=== PATIENT | male | born 1955 | race Two or more races ===

== ENCOUNTER → 2022-12-28 | Outpatient (CLI) | payer OTHER ==
[~2022-12-28] MED LIST: HYDR-4902 PO; IBUP800T26 PO; LACT10SO3 PO; TAM04C PO
[2022-12-28 11:21] LABS: Urine WBC None Seen /hpf (0 - 3)
[2022-12-28 11:27] LABS: Basophils # (auto) 0 10 ^3/uL (0-0.2); Basophils % (auto) 0.6 % (0.0-2.0); Eosinophils # (auto) 0.2 10 ^3/uL (0-0.8); Eosinophils % (auto) 2.9 % (0.0-7.0); Hematocrit 43.3 % (41.0-53.0); Lymphocytes # (auto) 2.4 10 ^3/uL (0.4-5.4); Lymphocytes % (auto) 32.3 % (10.0-50.0); Mean Corpuscular Hemoglobin 31.4 pg (28.0-32.0); Mean Corpuscular Hgb Conc. 34.6 g/dL (32.0-36.0); Mean Corpuscular Volume 90.7 fL (80.0-100.0); Monocytes # (auto) 0.8 10 ^3/uL (0-1.3); Monocytes % (auto) 11.1 % (0.0-12.0); Neutrophils # (auto) 3.9 10 ^3/uL (1.6-8.6); Neutrophils % (auto) 53.1 % (37.0-80.0); Nucleated Red Blood Cells % 0.1 %; Red Blood Cells 4.78 10^6/uL (4.5-5.90); Red Cell Distribution Width 13.2 % (11.8-14.3); White Blood Cell 7.3 10^3/uL (4.4-10.8)
[2022-12-28 11:51] LABS: Urine Bacteria NONE SEEN /hpf (None Seen); Urine Blood Negative /uL (Negative)
[2022-12-28 11:58] LABS: Calcium 9.1 mg/dL (8.5-10.1); Magnesium 2.4 mg/dL (1.6-2.6); Uric Acid 4.7 mg/dL (3.5-7.2)
[2022-12-28 12:04] LABS: BUN/Creatinine Ratio 13.4 (10.0-20.0); Bilirubin, Total 0.8 mg/dL (0.2-1.0); Total Protein 7.1 g/dL (6.4-8.2)
[2022-12-28 12:34] LABS: Potassium 4.4 mmol/L (3.5-5.1)
== END | disposition home or self-care (01) ==
LOC: LAB 11:11
PROVIDERS: ATTEND Internal Medicine
DX: R73.09 Other abnormal glucose (principal); E78.41 Elevated Lipoprotein(a); R68.89 Other general symptoms and signs; E61.2 Magnesium deficiency; R94.6 Abnormal results of thyroid function studies; R82.991 Hypocitraturia; E55.9 Vitamin D deficiency, unspecified; R82.90 Unspecified abnormal findings in urine; D51.9 Vitamin B12 deficiency anemia, unspecified; E79.0 Hyperuricemia without signs of inflammatory arthritis and tophaceous disease
CPT/HCPCS: 36415; 80053; 80061; 81001; 82306; 82607; 83036; 83735; 84443; 84550; 85025; 87086; 87088; 87186

== ENCOUNTER 2023-01-05 15:05 | Emergency (ER) | payer OTHER, MEDICAID ==
[~2023-01-05] VITALS: Ht 170.2 cm; Wt 79.5 kg
[2023-01-05 15:56] LABS: Urine Bacteria NONE SEEN /hpf (None Seen); Urine Blood Negative /uL (Negative); Urine Specific Gravity 1.011 (1.001-1.035); Urine WBC <1 /hpf (0 - 3)
[2023-01-05 16:35] LABS: Albumin 3.9 g/dL (3.4-5.0); Calcium 8.5 mg/dL (8.5-10.1); Potassium 3.9 mmol/L (3.5-5.1)
[2023-01-05 16:39] LABS: BUN/Creatinine Ratio 13.3 (10.0-20.0); Bilirubin, Total 0.7 mg/dL (0.2-1.0); Total Protein 7.2 g/dL (6.4-8.2)
[2023-01-05 16:43] LABS: Basophils # (auto) 0.1 10 ^3/uL (0-0.2); Basophils % (auto) 1.2 % (0.0-2.0); Eosinophils # (auto) 0.3 10 ^3/uL (0-0.8); Hematocrit 42.8 % (41.0-53.0); Hemoglobin 14.8 g/dL (13.5-17.5); Lymphocytes % (auto) 32.3 % (10.0-50.0); Mean Corpuscular Hemoglobin 31.6 pg (28.0-32.0); Mean Corpuscular Hgb Conc. 34.7 g/dL (32.0-36.0); Mean Corpuscular Volume 91.3 fL (80.0-100.0); Monocytes # (auto) 0.9 10 ^3/uL (0-1.3); Monocytes % (auto) 9.4 % (0.0-12.0); Neutrophils % (auto) 54.1 % (37.0-80.0); Nucleated Red Blood Cells % 0.1 %; Red Blood Cells 4.69 10^6/uL (4.5-5.90); Red Cell Distribution Width 13.3 % (11.8-14.3); White Blood Cell 9.2 10^3/uL (4.4-10.8)
[2023-01-05] MEDS ORDERED: HYDROcodone-ACET 10/325MG TAB PO ONE (18:00)
[2023-01-05] MEDS ORDERED: KETOROLAC TROMETH 60MG/2ML VIAL IM ONE (18:00)
[2023-01-05] MEDS ORDERED: IBUP800T26 PO (20:02)
[2023-01-05] MEDS ORDERED: LACT10SO3 PO (20:02)
[2023-01-05] MEDS ORDERED: TAM04C PO (20:02)
[2023-01-05] MEDS ORDERED: HYDR-4902 PO (20:02)
[2023-01-05 20:27] VITALS: BP 143/64
== END 2023-01-05 20:30 | disposition home or self-care (01) ==
LOC: ER 15:05
DX: G89.29 Other chronic pain (principal); M54.9 Dorsalgia, unspecified; K59.00 Constipation, unspecified; R33.9 Retention of urine, unspecified
CPT/HCPCS: 36415; 72070; 72100; 80053; 81001; 85025; 93005; 96372; 99285; J1885

== ENCOUNTER → 2023-04-28 | Outpatient (CLI) | payer OTHER, MEDICAID ==
[~2023-04-28] MED LIST changes: +IBUP-1455 PO; -IBUP800T26 PO; -TAM04C PO; +TAMS-35 PO
[2023-04-28 07:23] LABS: Basophils # (auto) 0.1 10 ^3/uL (0-0.2); Basophils % (auto) 1.3 % (0.0-2.0); Eosinophils # (auto) 0.3 10 ^3/uL (0-0.8); Eosinophils % (auto) 3.6 % (0.0-7.0); Hemoglobin 14.7 g/dL (13.5-17.5); Lymphocytes # (auto) 3.2 10 ^3/uL (0.4-5.4); Lymphocytes % (auto) 37.4 % (10.0-50.0); Mean Corpuscular Hemoglobin 30.9 pg (28.0-32.0); Mean Corpuscular Hgb Conc. 34.9 g/dL (32.0-36.0); Mean Corpuscular Volume 88.6 fL (80.0-100.0); Monocytes % (auto) 12.3 % (0.0-12.0); Neutrophils # (auto) 3.9 10 ^3/uL (1.6-8.6); Neutrophils % (auto) 45.4 % (37.0-80.0); Nucleated Red Blood Cells % 0.2 %; Red Blood Cells 4.75 10^6/uL (4.5-5.90); Red Cell Distribution Width 13.1 % (11.8-14.3); White Blood Cell 8.5 10^3/uL (4.4-10.8)
[2023-04-28 08:21] LABS: Urine Bacteria NONE SEEN /hpf (None Seen); Urine Blood Negative /uL (Negative); Urine Clarity Clear (Clear); Urine Protein, UAD Negative (Negative); Urine Specific Gravity 1.018 (1.001-1.035); Urine Urobilinogen Normal (Negative); Urine WBC <1 /hpf (0 - 3)
[2023-04-28 08:23] LABS: Urine Color Straw (Yellow)
[2023-04-28 08:44] LABS: Alanine Aminotransferase 13 U/L (7-40); Albumin 4.4 g/dL (3.2-4.8); Alkaline Phosphatase 48 U/L (46-116); Anion Gap 5.8 (5-15); Aspartate Aminotransferase < 8 U/L (13-40); BUN/Creatinine Ratio 16.5 (10.0-20.0); Blood Urea Nitrogen 15 mg/dL (9-23); Calcium 9.3 mg/dL (8.5-10.1); Carbon Dioxide 27.2 mmol/L (20-30); Chloride 104 mmol/L (98-107); Glucose 79 mg/dL (74-106); LDL Cholesterol 116 mg/dL (< 100); Magnesium 2.2 mg/dL (1.6-2.6); Sodium 137 mmol/L (136-145); Total Protein 6.8 g/dL (5.7-8.2); Triglycerides 237 mg/dL (< 150)
[2023-04-28 08:45] LABS: Bilirubin, Direct 0.2 mg/dL (<0.3); Bilirubin, Total 0.8 mg/dL (0.2-1.0); Cholesterol 194 mg/dL (< 200); HDL Cholesterol 36 mg/dL (40-59)
[2023-04-28 09:36] LABS: Folate (Folic Acid) 12.47 ng/mL (>5.38)
== END | disposition home or self-care (01) ==
LOC: LAB 06:57
PROVIDERS: ATTEND Internal Medicine
DX: E11.8 Type 2 diabetes mellitus with unspecified complications (principal); I10 Essential (primary) hypertension; R94.5 Abnormal results of liver function studies; D64.9 Anemia, unspecified; E03.9 Hypothyroidism, unspecified; E78.5 Hyperlipidemia, unspecified; E61.2 Magnesium deficiency; R94.6 Abnormal results of thyroid function studies; E79.0 Hyperuricemia without signs of inflammatory arthritis and tophaceous disease; R82.998 Other abnormal findings in urine; E55.9 Vitamin D deficiency, unspecified; R82.90 Unspecified abnormal findings in urine; R82.79 Other abnormal findings on microbiological examination of urine; D51.9 Vitamin B12 deficiency anemia, unspecified; E78.49 Other hyperlipidemia; R68.89 Other general symptoms and signs
CPT/HCPCS: 36415; 80053; 80061; 80076; 81001; 82306; 82607; 82746; 83036; 83735; 84443; 84550; 85025; 87086

== ENCOUNTER → 2023-06-15 | Outpatient (CLI) | payer OTHER ==
[2023-06-15 12:10] LABS: Basophils # (auto) 0.1 10 ^3/uL (0-0.2); Basophils % (auto) 0.8 % (0.0-2.0); Eosinophils # (auto) 0.1 10 ^3/uL (0-0.8); Eosinophils % (auto) 0.6 % (0.0-7.0); Hematocrit 46.3 % (41.0-53.0); Hemoglobin 15.6 g/dL (13.5-17.5); Lymphocytes # (auto) 2.4 10 ^3/uL (0.4-5.4); Lymphocytes % (auto) 22.5 % (10.0-50.0); Mean Corpuscular Hemoglobin 30.6 pg (28.0-32.0); Mean Corpuscular Hgb Conc. 33.6 g/dL (32.0-36.0); Monocytes # (auto) 1.1 10 ^3/uL (0-1.3); Neutrophils % (auto) 66.1 % (37.0-80.0); Red Blood Cells 5.09 10^6/uL (4.5-5.90); Red Cell Distribution Width 12.7 % (11.8-14.3); White Blood Cell 10.6 10^3/uL (4.4-10.8)
[2023-06-15 13:06] LABS: Alanine Aminotransferase 11 U/L (7-40); Albumin 5.1 g/dL (3.2-4.8); Alkaline Phosphatase 60 U/L (46-116); Anion Gap 8 (5-15); Aspartate Aminotransferase < 8 U/L (13-40); BUN/Creatinine Ratio 14.3 (10.0-20.0); Blood Urea Nitrogen 14 mg/dL (9-23); Calcium 9.8 mg/dL (8.7-10.4); Carbon Dioxide 27 mmol/L (20-30); Chloride 101 mmol/L (98-107); Glucose 118 mg/dL (74-106); Potassium 3.8 mmol/L (3.5-5.1); Sodium 136 mmol/L (136-145); Uric Acid 3.8 mg/dL (3.7-9.2)
[2023-06-15 13:07] LABS: Bilirubin, Total 1.1 mg/dL (0.2-1.0); Total Protein 7.8 g/dL (5.7-8.2)
[2023-06-15 13:21] LABS: Erythrocyte Sedimentation Rate 11 mm/hr (0-20)
[2023-06-15 13:33] LABS: CRP High Sensitivity 0.04 mg/dL (<1.0)
[2023-06-16 08:06] LABS: Rheumatoid Arthritis Factor <10.0 IU/mL (<14.0)
[2023-06-16 21:06] LABS: CCP IgG/IgA Antibody 2 units (0-19)
== END | disposition home or self-care (01) ==
LOC: LAB 11:50
PROVIDERS: ATTEND Internal Medicine Rheumatology
DX: M06.4 Inflammatory polyarthropathy (principal)
CPT/HCPCS: 36415; 80053; 84550; 85025; 85652; 86141; 86200; 86431

== ENCOUNTER 2023-07-13 14:44 | Emergency (ER) | payer OTHER, MEDICAID ==
[~2023-07-13] VITALS: Ht 170.2 cm; Wt 79.2 kg
[2023-07-13 15:44] LABS: Urine WBC None Seen /hpf (0 - 3)
[2023-07-13 15:49] LABS: Alanine Aminotransferase 15 U/L (7-40); Albumin 4.3 g/dL (3.2-4.8); Alkaline Phosphatase 50 U/L (46-116); Amylase 68 U/L (30-118); Anion Gap 3 (5-15); Aspartate Aminotransferase 11 U/L (13-40); BUN/Creatinine Ratio 11.8 (10.0-20.0); Blood Urea Nitrogen 11 mg/dL (9-23); Calcium 9.1 mg/dL (8.5-10.1); Carbon Dioxide 29 mmol/L (20-30); Chloride 105 mmol/L (98-107); Glucose 162 mg/dL (74-106); Potassium 4.1 mmol/L (3.5-5.1); Sodium 137 mmol/L (136-145)
[2023-07-13 15:50] LABS: Bilirubin, Total 0.7 mg/dL (0.2-1.0); Total Protein 6.4 g/dL (5.7-8.2)
[2023-07-13 15:55] LABS: Urine Bacteria NONE SEEN /hpf (None Seen); Urine Blood Negative /uL (Negative); Urine Clarity Clear (Clear); Urine Protein, UAD Negative (Negative); Urine Specific Gravity 1.014 (1.001-1.035); Urine Urobilinogen Normal (Negative); Urine pH 6.5 (5.0-8.0)
[2023-07-13 15:59] LABS: Basophils # (auto) 0.1 10 ^3/uL (0-0.2); Eosinophils # (auto) 0.1 10 ^3/uL (0-0.8); Eosinophils % (auto) 1.3 % (0.0-7.0); Hematocrit 41.1 % (41.0-53.0); Hemoglobin 13.9 g/dL (13.5-17.5); Lymphocytes # (auto) 2.3 10 ^3/uL (0.4-5.4); Lymphocytes % (auto) 29.4 % (10.0-50.0); Mean Corpuscular Hemoglobin 30.8 pg (28.0-32.0); Mean Corpuscular Hgb Conc. 33.9 g/dL (32.0-36.0); Mean Corpuscular Volume 90.9 fL (80.0-100.0); Monocytes # (auto) 0.7 10 ^3/uL (0-1.3); Monocytes % (auto) 8.4 % (0.0-12.0); Neutrophils # (auto) 4.8 10 ^3/uL (1.6-8.6); Neutrophils % (auto) 59.9 % (37.0-80.0); Red Blood Cells 4.52 10^6/uL (4.5-5.90); Red Cell Distribution Width 12.8 % (11.8-14.3)
[2023-07-13 16:02] LABS: INR 1.02 (0.9-1.15); Partial Thromboplastin Time 28.5 SEC (24.5-34.5); Prothrombin Time 10.7 sec (9.3-11.8)
[2023-07-13 16:13] LABS: Urine Color STRAW (Yellow)
[2023-07-13 16:57] LABS: Lipase 31 U/L (12-53); Magnesium 2.1 mg/dL (1.6-2.6)
[2023-07-13] MEDS ORDERED: NITR-87 PO (20:04)
[2023-07-13 20:25] VITALS: BP 135/62; PULSE 63; RESP 18; TEMP 97.5; O2SAT 100
== END 2023-07-13 20:27 | disposition home or self-care (01) ==
LOC: ER 14:44
DX: K29.00 Acute gastritis without bleeding (principal); N39.0 Urinary tract infection, site not specified; Z79.899 Other long term (current) drug therapy
CPT/HCPCS: 36415; 74176; 80053; 81001; 82150; 83690; 83735; 84484; 85025; 85610; 85730; 93005

== ENCOUNTER → 2023-07-22 | Outpatient (CLI) | payer OTHER ==
[~2023-07-22] MED LIST changes: +NITR-87 PO
[2023-07-22 12:48] LABS: Basophils # (auto) 0 10 ^3/uL (0-0.2); Basophils % (auto) 0.3 % (0.0-2.0); Eosinophils # (auto) 0.4 10 ^3/uL (0-0.8); Eosinophils % (auto) 3.8 % (0.0-7.0); Hematocrit 42.4 % (41.0-53.0); Hemoglobin 14.6 g/dL (13.5-17.5); Lymphocytes # (auto) 0.8 10 ^3/uL (0.4-5.4); Lymphocytes % (auto) 8.4 % (10.0-50.0); Mean Corpuscular Hgb Conc. 34.4 g/dL (32.0-36.0); Mean Corpuscular Volume 90.2 fL (80.0-100.0); Monocytes # (auto) 1.2 10 ^3/uL (0-1.3); Monocytes % (auto) 12.3 % (0.0-12.0); Neutrophils # (auto) 7.5 10 ^3/uL (1.6-8.6); Neutrophils % (auto) 75.2 % (37.0-80.0); Red Cell Distribution Width 13.2 % (11.8-14.3)
[2023-07-22 13:09] LABS: Alanine Aminotransferase 14 U/L (7-40); Albumin 4.5 g/dL (3.2-4.8); Alkaline Phosphatase 58 U/L (46-116); Anion Gap 5 (5-15); Aspartate Aminotransferase 9 U/L (13-40); BUN/Creatinine Ratio 8.9 (10.0-20.0); Bilirubin, Direct 0.4 mg/dL (<0.3); Bilirubin, Total 1.2 mg/dL (0.2-1.0); Blood Urea Nitrogen 8 mg/dL (9-23); Calcium 9.3 mg/dL (8.5-10.1); Carbon Dioxide 28 mmol/L (20-30); Chloride 102 mmol/L (98-107); Cholesterol 137 mg/dL (< 200); Glucose 147 mg/dL (74-106); HDL Cholesterol 49 mg/dL (40-59); LDL Cholesterol 73 mg/dL (< 100); Potassium 4.2 mmol/L (3.5-5.1); Sodium 135 mmol/L (136-145)
[2023-07-22 13:15] LABS: Triglycerides 71 mg/dL (< 150)
== END | disposition home or self-care (01) ==
LOC: LAB 12:26
PROVIDERS: ATTEND Specialist
DX: I10 Essential (primary) hypertension (principal); R94.5 Abnormal results of liver function studies; D64.9 Anemia, unspecified; E78.5 Hyperlipidemia, unspecified; E11.8 Type 2 diabetes mellitus with unspecified complications; E03.9 Hypothyroidism, unspecified
CPT/HCPCS: 36415; 80053; 80061; 80076; 83036; 84443; 85025

== ENCOUNTER → 2023-08-17 | Outpatient (CLI) | payer OTHER ==
[2023-08-17 09:25] LABS: Basophils # (auto) 0.1 10 ^3/uL (0-0.2); Basophils % (auto) 1.2 % (0.0-2.0); Eosinophils # (auto) 0.7 10 ^3/uL (0-0.8); Eosinophils % (auto) 9.2 % (0.0-7.0); Hematocrit 44.4 % (41.0-53.0); Lymphocytes # (auto) 2.8 10 ^3/uL (0.4-5.4); Lymphocytes % (auto) 38.4 % (10.0-50.0); Mean Corpuscular Hemoglobin 30.5 pg (28.0-32.0); Mean Corpuscular Hgb Conc. 33.7 g/dL (32.0-36.0); Mean Corpuscular Volume 90.6 fL (80.0-100.0); Monocytes # (auto) 0.9 10 ^3/uL (0-1.3); Monocytes % (auto) 11.7 % (0.0-12.0); Neutrophils # (auto) 2.9 10 ^3/uL (1.6-8.6); Neutrophils % (auto) 39.5 % (37.0-80.0); Nucleated Red Blood Cells % 0.1 %; Red Cell Distribution Width 13.4 % (11.8-14.3); White Blood Cell 7.4 10^3/uL (4.4-10.8)
[2023-08-17 09:53] LABS: Alanine Aminotransferase 15 U/L (7-40); Albumin 4.6 g/dL (3.2-4.8); Alkaline Phosphatase 55 U/L (46-116); Anion Gap 8 (5-15); Aspartate Aminotransferase 11 U/L (13-40); BUN/Creatinine Ratio 11.4 (10.0-20.0); Blood Urea Nitrogen 10 mg/dL (9-23); Calcium 9.6 mg/dL (8.5-10.1); Carbon Dioxide 26 mmol/L (20-30); Chloride 103 mmol/L (98-107); Glucose 107 mg/dL (74-106); LDL Cholesterol 80 mg/dL (< 100); Potassium 4.1 mmol/L (3.5-5.1); Sodium 137 mmol/L (136-145); Triglycerides 177 mg/dL (< 150)
[2023-08-17 09:54] LABS: Bilirubin, Direct 0.2 mg/dL (<0.3); Bilirubin, Total 0.8 mg/dL (0.2-1.0); Cholesterol 141 mg/dL (< 200); HDL Cholesterol 41 mg/dL (40-59); Total Protein 6.9 g/dL (5.7-8.2)
== END | disposition home or self-care (01) ==
LOC: LAB 08:58
PROVIDERS: ATTEND Specialist
DX: I10 Essential (primary) hypertension (principal); R94.5 Abnormal results of liver function studies; D64.9 Anemia, unspecified; E03.9 Hypothyroidism, unspecified; E78.5 Hyperlipidemia, unspecified; E11.8 Type 2 diabetes mellitus with unspecified complications
CPT/HCPCS: 36415; 80048; 80061; 80076; 83036; 84443; 85025

== ENCOUNTER → 2023-10-12 | Outpatient (CLI) | payer OTHER ==
[2023-10-12 13:00] LABS: Basophils # (auto) 0.1 10 ^3/uL (0-0.2); Basophils % (auto) 1.1 % (0.0-2.0); Eosinophils # (auto) 0.2 10 ^3/uL (0-0.8); Eosinophils % (auto) 2.7 % (0.0-7.0); Hematocrit 43.8 % (41.0-53.0); Lymphocytes # (auto) 2.3 10 ^3/uL (0.4-5.4); Lymphocytes % (auto) 30.3 % (10.0-50.0); Mean Corpuscular Hemoglobin 31.1 pg (28.0-32.0); Mean Corpuscular Hgb Conc. 34.2 g/dL (32.0-36.0); Mean Corpuscular Volume 91.2 fL (80.0-100.0); Monocytes # (auto) 0.7 10 ^3/uL (0-1.3); Monocytes % (auto) 9.7 % (0.0-12.0); Neutrophils # (auto) 4.3 10 ^3/uL (1.6-8.6); Neutrophils % (auto) 56.2 % (37.0-80.0); Nucleated Red Blood Cells % 0.1 %; Red Blood Cells 4.81 10^6/uL (4.5-5.90); Red Cell Distribution Width 13.3 % (11.8-14.3); White Blood Cell 7.7 10^3/uL (4.4-10.8)
[2023-10-12 13:09] LABS: Alanine Aminotransferase 11 U/L (7-40); Albumin 4.5 g/dL (3.2-4.8); Alkaline Phosphatase 50 U/L (46-116); Anion Gap 4 (5-15); Aspartate Aminotransferase 13 U/L (13-40); BUN/Creatinine Ratio 9.4 (10.0-20.0); Blood Urea Nitrogen 8 mg/dL (9-23); Calcium 9.6 mg/dL (8.5-10.1); Carbon Dioxide 30 mmol/L (20-30); Chloride 104 mmol/L (98-107); Cholesterol 150 mg/dL (< 200); Glucose 129 mg/dL (74-106); LDL Cholesterol 88 mg/dL (< 100); Potassium 4.1 mmol/L (3.5-5.1); Sodium 138 mmol/L (136-145); Triglycerides 139 mg/dL (< 150)
[2023-10-12 13:10] LABS: Bilirubin, Direct 0.3 mg/dL (<0.3); Bilirubin, Total 1.1 mg/dL (0.2-1.0); HDL Cholesterol 43 mg/dL (40-59)
[2023-10-12 13:11] LABS: Total Protein 6.7 g/dL (5.7-8.2)
== END | disposition home or self-care (01) ==
LOC: LAB 12:11
PROVIDERS: ATTEND Specialist
DX: I10 Essential (primary) hypertension (principal); R94.5 Abnormal results of liver function studies; D64.9 Anemia, unspecified; E78.5 Hyperlipidemia, unspecified; E11.8 Type 2 diabetes mellitus with unspecified complications; E55.9 Vitamin D deficiency, unspecified; E03.9 Hypothyroidism, unspecified
CPT/HCPCS: 36415; 80048; 80061; 80076; 82306; 83036; 84443; 85025

== ENCOUNTER → 2024-01-12 | Outpatient (CLI) | payer OTHER ==
[2024-01-12 09:27] LABS: Basophils # (auto) 0.1 10 ^3/uL (0-0.2); Basophils % (auto) 0.7 % (0.0-2.0); Eosinophils # (auto) 0.2 10 ^3/uL (0-0.8); Eosinophils % (auto) 1.9 % (0.0-7.0); Hematocrit 43.1 % (41.0-53.0); Hemoglobin 14.6 g/dL (13.5-17.5); Lymphocytes # (auto) 2.8 10 ^3/uL (0.4-5.4); Lymphocytes % (auto) 26.4 % (10.0-50.0); Mean Corpuscular Hemoglobin 30.5 pg (28.0-32.0); Mean Corpuscular Volume 89.8 fL (80.0-100.0); Monocytes # (auto) 1.2 10 ^3/uL (0-1.3); Monocytes % (auto) 10.9 % (0.0-12.0); Neutrophils # (auto) 6.4 10 ^3/uL (1.6-8.6); Neutrophils % (auto) 60.1 % (37.0-80.0); Red Blood Cells 4.79 10^6/uL (4.5-5.90); Red Cell Distribution Width 12.8 % (11.8-14.3); White Blood Cell 10.6 10^3/uL (4.4-10.8)
[2024-01-12 09:58] LABS: Alanine Aminotransferase 10 U/L (7-40); Albumin 4.7 g/dL (3.2-4.8); Alkaline Phosphatase 83 U/L (46-116); Anion Gap 6 (5-15); Aspartate Aminotransferase < 8 U/L (13-40); BUN/Creatinine Ratio 18.8 (10.0-20.0); Bilirubin, Direct 0.3 mg/dL (<0.3); Blood Urea Nitrogen 15 mg/dL (9-23); Calcium 9.7 mg/dL (8.5-10.1); Carbon Dioxide 27 mmol/L (20-30); Chloride 104 mmol/L (98-107); Cholesterol 183 mg/dL (< 200); Glucose 104 mg/dL (74-106); HDL Cholesterol 45 mg/dL (40-59); LDL Cholesterol 126 mg/dL (< 100); Potassium 3.8 mmol/L (3.5-5.1); Sodium 137 mmol/L (136-145); Triglycerides 92 mg/dL (< 150)
[2024-01-12 09:59] LABS: Bilirubin, Total 0.9 mg/dL (0.2-1.0); Total Protein 7.3 g/dL (5.7-8.2)
== END | disposition home or self-care (01) ==
LOC: LAB 08:40
PROVIDERS: ATTEND Specialist
DX: E11.9 Type 2 diabetes mellitus without complications (principal); E03.9 Hypothyroidism, unspecified; E78.5 Hyperlipidemia, unspecified; I10 Essential (primary) hypertension; D64.9 Anemia, unspecified; R68.89 Other general symptoms and signs
CPT/HCPCS: 36415; 80053; 80061; 82043; 82248; 83036; 84443; 85025

== ENCOUNTER → 2024-03-16 | Outpatient (CLI) | payer OTHER ==
[2024-03-16 11:18] LABS: Urine Bacteria None Seen /hpf (None Seen)
[2024-03-16 11:27] LABS: Basophils # (auto) 0.2 10 ^3/uL (0-0.2); Basophils % (auto) 2.2 % (0.0-2.0); Eosinophils # (auto) 0.4 10 ^3/uL (0-0.8); Eosinophils % (auto) 4.2 % (0.0-7.0); Hematocrit 42.7 % (41.0-53.0); Hemoglobin 14.8 g/dL (13.5-17.5); Lymphocytes # (auto) 2.4 10 ^3/uL (0.4-5.4); Lymphocytes % (auto) 28.9 % (10.0-50.0); Mean Corpuscular Hemoglobin 30.7 pg (28.0-32.0); Mean Corpuscular Hgb Conc. 34.6 g/dL (32.0-36.0); Mean Corpuscular Volume 88.7 fL (80.0-100.0); Monocytes % (auto) 11.9 % (0.0-12.0); Neutrophils # (auto) 4.4 10 ^3/uL (1.6-8.6); Neutrophils % (auto) 52.8 % (37.0-80.0); Nucleated Red Blood Cells % 0.1 %; Red Blood Cells 4.81 10^6/uL (4.5-5.90); Red Cell Distribution Width 13.5 % (11.8-14.3); White Blood Cell 8.3 10^3/uL (4.4-10.8)
[2024-03-16 11:56] LABS: Alanine Aminotransferase 12 U/L (7-40); Alkaline Phosphatase 62 U/L (46-116); Anion Gap 5 (5-15); BUN/Creatinine Ratio 7.2 (10.0-20.0); Blood Urea Nitrogen 6 mg/dL (9-23); Calcium 9.5 mg/dL (8.7-10.4); Carbon Dioxide 29 mmol/L (20-30); Chloride 106 mmol/L (98-107); Glucose 88 mg/dL (74-106); LDL Cholesterol 53 mg/dL (< 100); Potassium 4.2 mmol/L (3.5-5.1); Sodium 140 mmol/L (136-145); Triglycerides 115 mg/dL (< 150)
[2024-03-16 11:57] LABS: Albumin 4.4 g/dL (3.2-4.8); Aspartate Aminotransferase 9 U/L (13-40); Cholesterol 108 mg/dL (< 200); HDL Cholesterol 39 mg/dL (40-59); Total Protein 6.8 g/dL (5.7-8.2)
[2024-03-16 11:58] LABS: Urine Blood TRACE /uL (Negative); Urine Clarity Clear (Clear); Urine Color Light-Yellow (Yellow); Urine Protein, UAD Negative (Negative); Urine Specific Gravity 1.023 (1.001-1.035); Urine Urobilinogen Normal (Negative); Urine WBC <1 /hpf (0 - 3); Urine pH 6.5 (5.0-9.0)
[2024-03-16 12:10] LABS: Folate (Folic Acid) 15.18 ng/mL (>5.38)
[2024-03-16 12:16] LABS: Uric Acid 3.6 mg/dL (3.7-9.2)
== END | disposition home or self-care (01) ==
LOC: LAB 11:05
PROVIDERS: ATTEND Internal Medicine
DX: I10 Essential (primary) hypertension (principal); D51.9 Vitamin B12 deficiency anemia, unspecified; R78.89 Finding of other specified substances, not normally found in blood; R68.89 Other general symptoms and signs; E03.9 Hypothyroidism, unspecified; D64.9 Anemia, unspecified; E78.5 Hyperlipidemia, unspecified; E11.9 Type 2 diabetes mellitus without complications; E61.2 Magnesium deficiency; E79.0 Hyperuricemia without signs of inflammatory arthritis and tophaceous disease; E85.9 Amyloidosis, unspecified; R82.90 Unspecified abnormal findings in urine
CPT/HCPCS: 36415; 80053; 80061; 81001; 82306; 82607; 82746; 83036; 84443; 84550; 85025; 87086

== ENCOUNTER 2024-06-06 14:48 | Emergency (ER) | payer OTHER ==
[~2024-06-06] VITALS: Ht 170.2 cm; Wt 76.7 kg
[2024-06-06 20:00] VITALS: BP 146/61; PULSE 75; RESP 16; TEMP 97.6; O2SAT 100
[2024-06-06] MEDS: KETOROLAC TROMETH 30 MG/ML 1ML VIAL IM ONE (20:03)
== END 2024-06-06 20:14 | disposition home or self-care (01) ==
LOC: ER 14:48
DX: S09.90XA Unspecified injury of head, initial encounter (principal); I10 Essential (primary) hypertension; Z79.899 Other long term (current) drug therapy; W19.XXXA Unspecified fall, initial encounter; Y93.89 Activity, other specified; Y92.89 Other specified places as the place of occurrence of the external cause; Y99.8 Other external cause status
CPT/HCPCS: 70450; 96372; 99285; J1885

== ENCOUNTER → 2024-09-04 | Outpatient (CLI) | payer MEDICAID ==
[~2024-09-04] MED LIST changes: +ALBU108A5; +ATOR20TA50 PO; +CETI-120 PO; +EMPA1TAB3; +FAMO40TA7; +FOLI-119 PO; +GAB100C PO; +GLUC-105; +INSU1INJ4; +PANT40T PO; +PREG75CA90; +SEMA2INJ3 SC
[2024-09-04 10:32] LABS: Basophils # (auto) 0.1 10 ^3/uL (0-0.2); Basophils % (auto) 0.6 % (0.0-2.0); Eosinophils # (auto) 0.1 10 ^3/uL (0-0.8); Eosinophils % (auto) 0.8 % (0.0-7.0); Hematocrit 44.6 % (41.0-53.0); Hemoglobin 15.5 g/dL (13.5-17.5); Lymphocytes # (auto) 3.2 10 ^3/uL (0.4-5.4); Lymphocytes % (auto) 30.7 % (10.0-50.0); Mean Corpuscular Hemoglobin 31.4 pg (28.0-32.0); Mean Corpuscular Hgb Conc. 34.8 g/dL (32.0-36.0); Mean Corpuscular Volume 90.2 fL (80.0-100.0); Monocytes # (auto) 1.1 10 ^3/uL (0-1.3); Monocytes % (auto) 10.2 % (0.0-12.0); Neutrophils % (auto) 57.7 % (37.0-80.0); Platelet Count (auto) 256 10^3/uL (140-450); Red Blood Cells 4.94 10^6/uL (4.5-5.90); White Blood Cell 10.4 10^3/uL (4.4-10.8)
[2024-09-04 10:59] LABS: Alanine Aminotransferase 14 U/L (7-40); Albumin 4.8 g/dL (3.2-4.8); Alkaline Phosphatase 57 U/L (46-116); Anion Gap 9 (5-15); BUN/Creatinine Ratio 19.8 (10.0-20.0); Blood Urea Nitrogen 18 mg/dL (9-23); Calcium 10.1 mg/dL (8.7-10.4); Carbon Dioxide 27 mmol/L (20-31); Chloride 103 mmol/L (98-107); Sodium 139 mmol/L (136-145)
[2024-09-04 11:00] LABS: Aspartate Aminotransferase 12 U/L (13-40); Bilirubin, Direct 0.2 mg/dL (<0.3); Bilirubin, Total 0.9 mg/dL (0.2-1.0); Cholesterol 210 mg/dL (< 200); Glucose 113 mg/dL (74-106); HDL Cholesterol 45 mg/dL (40-59); LDL Cholesterol 140 mg/dL (< 100); Total Protein 7.4 g/dL (5.7-8.2); Triglycerides 206 mg/dL (< 150)
== END | disposition home or self-care (01) ==
LOC: LAB 10:07
PROVIDERS: ATTEND Specialist
DX: E11.9 Type 2 diabetes mellitus without complications (principal); I10 Essential (primary) hypertension; D64.9 Anemia, unspecified; E03.9 Hypothyroidism, unspecified; E78.5 Hyperlipidemia, unspecified; R68.89 Other general symptoms and signs
CPT/HCPCS: 36415; 80053; 80061; 82248; 83036; 84443; 85025

== ENCOUNTER 2024-09-06 15:17 | Inpatient (IN) | payer MEDICAID ==
[~2024-09-06] VITALS: Ht 170.2 cm; Wt 77.1 kg
[~2024-09-06 15:17] MED LIST changes: -ALBU108A5; -ATOR20TA50 PO; -CETI-120 PO; -EMPA1TAB3; -FAMO40TA7; -FOLI-119 PO; -GAB100C PO; -GLUC-105; -INSU1INJ4; -PANT40T PO; -PREG75CA90; -SEMA2INJ3 SC
--- NOTE | 2024-09-06 15:35 | ED.PDOC ---
History of Present Illness HPI Comments 69-year-old male with a past medical history of angioplasty in October of 2021 diabetes mellitus presents to the emergency department with 1-1/2 weeks of worsening chest pressure, lightheadedness, dizziness. Lightheadedness dizziness became worse this morning and coryza 830-9 a.m.. He states he feels like he is almost passed out several times however no full syncope. He has difficulty with walking, his balance is off. He was treated for upper respiratory infection 2 weeks ago with azithromycin. He has a mild cough since then. He reports shortness of breath, palpitations, nausea. No vomiting. Patient was taken off of clopidogrel approximately 3 months ago. He is still takes aspirin. Chief Complaint: Chest Pain Time Seen by MD: 15:19 Primary Care Provider: CM Allergies: Coded Allergies: NO KNOWN ALLERGIES (Unverified , 01/05/23) Home Meds Active Scripts Nitrofurantoin Monohydrate Mac (Macrobid) 100 Mg Cap, 100 MG PO BID for 7 Days, #14 CAP Prov:ABDIRASHID ZUÑIGA 07/13/23 Lactulose (Lactulose) 10 Gm/15 Ml Itzel, 10 GM PO BIDP PRN, #150 ML Prov:HAN SUMNER 01/05/23 Tamsulosin Hcl (Flomax) 0.4 Mg Cap, 1 CAP PO DAILY, #30 CAP 0 Refills Prov:HAN SUMNER 01/05/23 Hydrocodone-Acetaminophen (Hydrocodone Bitartrate/AC 5-325 mg) 1 Tab Tab, 1 TAB PO Q6HP PRN, #10 TAB Prov:HAN SUMNER 01/05/23 Ibuprofen Micronized (Ibuprofen) 800 Mg Tab, 800 MG PO Q8HP PRN, #20 TAB Prov:HAN SUMNER 01/05/23 Review of Systems: REVIEW OF SYSTEMS: No fever, no chills, or fatigue HEENT: No sore throat, no earache, no congestion, no neck pain. Positive blurred vision Cardiac: Positive chest pain. Positive palpitations. Lungs: Positive shortness of breath, positive cough. GI: Positive nausea, no vomiting, no diarrhea, no constipation, no abdominal pain : No dysuria, frequency, or urgency. No hematuria. Musculoskeletal: No joint pain , no joint swelling, no extremity edema. Skin: No rash, no itching. Neuro: Positive headache, positive dizziness, no weakness Vital Signs Vital Signs Date Time Temp Pulse Resp B/P (MAP) Pulse Ox O2 Delivery O2 Flow Rate FiO2 09/06/24 18:47 80 09/06/24 15:39 98.2 16 152/80 (104) 98 Physical Exam General: Awake, alert and oriented. No acute distress. Skin: Skin in warm, dry and intact without rashes or lesions. HEENT: The head is normocephalic and atraumatic. Conjunctivae are clear without exudates or hemorrhage. Sclera is non-icteric. Neck: Normal range of motion. No JVD. Cardiac: Regular rate Respiratory: No signs of respiratory distress. No Stridor. Extremities: Upper and lower extremities are atraumatic in appearance without tenderness or deformity. Neurological: The patient is awake, alert and oriented to person, place, and time with normal speech. Speech is clear. There is no facial asymmetry. Psychiatric: Appropriate mood and affect. Good judgement and insight. No visual or auditory hallucinations. No suicidal or homicidal ideation. Past Medical History PAST MEDICAL HISTORY: HTN Surgical History: Denies all surgeries Family History Family History: Reviewed,noncontributory to illness, No family hx of Cancer, No family hx of DM, No family hx of Heart mackenzie, No family hx of HTN, No family hx ofKidney mackenzie, No family hx of Liver mackenzie, No family hx of Lung mackenzie, No family hx of Stroke Social History Smoker: Non-Smoker Alcohol: Denies ETOH Use Drugs: Denies Drug Use Was a procedure done? Was a procedure done?: No EKG EKG : Comments EKG INDEPENDENT INTERPRETATION IN HIS TACHYCARDIA RATE OF 101, NO STEMI, QTC 432 Differential Dx Considerations may include: Differential diagnoses considered include acute ischemic coronary syndrome, aortic dissection, cardiac tamponade, mediastinitis, pulmonary embolus, pneumothorax, tension pneumothorax, esophageal rupture, coronary artery vasospasm, myocarditis, pericarditis, pneumonia, pulmonary edema, esophageal tear, pancreatitis, aortic stenosis, dilated cardiomyopathy, hypertrophic cardio myopathy, mitral valve prolapse, malignancy, pleuritis, pneumomediastinum, primary pulmonary hypertension, cholecystitis, esophageal spasm, esophagus, gastritis, GERD, peptic ulcer disease, costochondritis, fibromyalgia, rib fracture, herpes zoster, radicular syndromes, thoracic outlet syndrome, somatization, CVA, carotid artery stenosis, vertigo, Meniere's disease. X-Ray, Labs, Meds, VS Vital Signs Date Time Temp Pulse Resp B/P (MAP) Pulse Ox O2 Delivery O2 Flow Rate FiO2 09/06/24 18:47 80 09/06/24 16:33 99 09/06/24 15:39 98.2 103 16 152/80 (104) 98 09/06/24 15:22 101 Lab Test 09/06/24 18:37 09/06/24 16:35 09/06/24 15:29 09/06/24 15:26 Range/Units Troponin I High Sensitivity Pending 4 3 L </=54 ng/L White Blood Count 9.8 4.4-10.8 10^3/uL Red Blood Count 4.81 4.5-5.90 10^6/uL Hemoglobin 15.1 13.5-17.5 g/dL Hematocrit 43.0 41.0-53.0 % Mean Corpuscular Volume 89.5 80.0-100.0 fL Mean Corpuscular Hemoglobin 31.4 28.0-32.0 pg Mean Corpuscular Hemoglobin Concent 35.0 32.0-36.0 g/dL Red Cell Distribution Width 13.1 11.8-14.3 % Platelet Count 269 140-450 10^3/uL Mean Platelet Volume 7.0 6.9-10.8 fL Neutrophils (%) (Auto) 60.1 37.0-80.0 % Lymphocytes (%) (Auto) 28.3 10.0-50.0 % Monocytes (%) (Auto) 9.6 0.0-12.0 % Eosinophils (%) (Auto) 1.2 0.0-7.0 % Basophils (%) (Auto) 0.8 0.0-2.0 % Neutrophils # (Auto) 5.9 1.6-8.6 10 ^3/uL Lymphocytes # (Auto) 2.8 0.4-5.4 10 ^3/uL Monocytes # (Auto) 0.9 0-1.3 10 ^3/uL Eosinophils # (Auto) 0.1 0-0.8 10 ^3/uL Basophils # (Auto) 0.1 0-0.2 10 ^3/uL Nucleated Red Blood Cells 0.1 % D-Dimer, Quantitative 0.24 0.0-0.49 mg/L FEU Urine Color Light-yellow Yellow Urine Clarity Clear Clear Urine pH 5.5 5.0-9.0 Urine Specific [place] 1.039 H 1.001-1.035 Urine Protein Negative Negative Urine Ketones Negative Negative Urine Blood Negative Negative /uL Urine Nitrite Negative Negative Urine Bilirubin Negative Negative Urine Urobilinogen Normal Negative mg/dL Urine Leukocyte Esterase Negative Negative /uL Urine RBC None seen 0 - 3 /hpf Urine WBC <1 0 - 3 /hpf Urine Squamous Epithelial Cells None seen <5 /hpf Urine Bacteria None seen None Seen /hpf Urine Glucose 4+ H Normal mg/dL Sodium Level 139 136-145 mmol/L Potassium Level 3.7 3.5-5.1 mmol/L Chloride Level 106 98-107 mmol/L Carbon Dioxide Level 22 20-31 mmol/L Anion Gap 11 5-15 Blood Urea Nitrogen 16 9-23 mg/dL Creatinine 0.97 0.700-1.30 mg/dL Glomerular Filtration Rate Calc 83 >90 mL/min BUN/Creatinine Ratio 16.5 10.0-20.0 Serum Glucose 257 #H 74-106 mg/dL Calcium Level 9.9 8.7-10.4 mg/dL Total Bilirubin 0.7 0.2-1.0 mg/dL Aspartate Amino Transferase (AST) 11 L 13-40 U/L Alanine Aminotransferase (ALT) 14 7-40 U/L Alkaline Phosphatase 60 46-116 U/L B-Type Natriuretic Peptide 16.15 0-100 pg/mL Total Protein 6.8 5.7-8.2 g/dL Albumin 4.3 3.2-4.8 g/dL POC Glucose 245 H 70-106 mg/dl Time of 1ST Reevaluation: 15:54 Reevaluation 1ST: Unchanged Patient Education/Counseling: Treatment, Prognosis, Other (Need for admission) Family Education/Counseling: No Family Present Departure 1 Departure Time of Disposition: 19:20 Impression: Primary Impression: Chest pain Additional Impression: Pre-syncope Disposition: ADMITTED INPATIENT Condition: Stable Comments 69-year-old male with history of coronary artery disease, diabetes and presyncopal episodes. Patient admitted for further treatment, evaluation and monitoring. Extensive evaluation was performed in attempt to identify or rule out: (See differential diagnosis section) The following tests were ordered, and results were reviewed by me: (See diagnostic results section) The following test were independently interpreted by me: EKG, chest x-ray I reviewed the following notes from the pt's past medical encounters: Encounter 05/2024 for head injury Additional information was gathered from interviewing the following independent historians: N/A Discussion of management or test interpretation with external physician/other qualified health health care consultant: N/A Addressed an acute or chronic illness that poses a threat to life or bodily function: Presyncope, chest pain Decision regarding hospitalization or escalation of hospital level of care: Risk and benefits of admission for further treatment of patient's condition was considered. Due to patient's current clinical condition, high risk of decline and poor outcome if discharged and need for further inpatient management and monitoring, patient will be admitted to the hospital. Drug therapy requiring intensive monitoring for toxicity: N/A Parenteral controlled substances: N/A Decision regarding elective major surgery with identified patient or procedure risk factors: N/A Decision regarding emergency major surgery: N/A Decision not to resuscitate or to de-escalate care because of poor prognosis: N/A Diagnosis or treatment significantly limited by social determinants of health: N/A Critical Care Note Critical Care Time?: No Stability Stability form required: No Heart Score Heart Score: Heart Score Response (Comments) Value History Moderate Suspicious 1 EKG Normal 0 Age >65 2 Risk Factors >3 or Hx ASHD 2 Troponin Normal limit 0 Total 5 PARMJIT NARAYAN MD Sep 06, 2024 15:35
--- NOTE | 2024-09-06 15:42 | DVH ---
CHEST RADIOGRAPH Indication: CP Technique: Single frontal view of the chest was obtained COMPARISON: None FINDINGS: Lines and Tubes: None Lungs: Clear Pleura: No effusion. No pneumothorax. Cardiomediastinal contours: Unremarkable Bones: Unremarkable IMPRESSION: No acute disease.
[2024-09-06 15:52] LABS: Basophils # (auto) 0.1 10 ^3/uL (0-0.2); Basophils % (auto) 0.8 % (0.0-2.0); Eosinophils # (auto) 0.1 10 ^3/uL (0-0.8); Eosinophils % (auto) 1.2 % (0.0-7.0); Hemoglobin 15.1 g/dL (13.5-17.5); Lymphocytes # (auto) 2.8 10 ^3/uL (0.4-5.4); Lymphocytes % (auto) 28.3 % (10.0-50.0); Mean Corpuscular Hemoglobin 31.4 pg (28.0-32.0); Mean Corpuscular Volume 89.5 fL (80.0-100.0); Monocytes # (auto) 0.9 10 ^3/uL (0-1.3); Monocytes % (auto) 9.6 % (0.0-12.0); Neutrophils # (auto) 5.9 10 ^3/uL (1.6-8.6); Neutrophils % (auto) 60.1 % (37.0-80.0); Nucleated Red Blood Cells % 0.1 %; Platelet Count (auto) 269 10^3/uL (140-450); Red Blood Cells 4.81 10^6/uL (4.5-5.90); Red Cell Distribution Width 13.1 % (11.8-14.3); White Blood Cell 9.8 10^3/uL (4.4-10.8)
[2024-09-06 16:04] LABS: Urine Bacteria None Seen /hpf (None Seen)
[2024-09-06 16:25] LABS: Urine Blood Negative /uL (Negative); Urine Clarity Clear (Clear); Urine Color Light-Yellow (Yellow); Urine Protein, UAD Negative (Negative); Urine Specific Gravity 1.039 (1.001-1.035); Urine Squamous Epithelial Cell None Seen /hpf (<5); Urine Urobilinogen Normal (Negative); Urine WBC <1 /hpf (0 - 3); Urine pH 5.5 (5.0-9.0)
[2024-09-06 16:45] LABS: Alanine Aminotransferase 14 U/L (7-40); Albumin 4.3 g/dL (3.2-4.8); Alkaline Phosphatase 60 U/L (46-116); Anion Gap 11 (5-15); BUN/Creatinine Ratio 16.5 (10.0-20.0); Bilirubin, Total 0.7 mg/dL (0.2-1.0); Blood Urea Nitrogen 16 mg/dL (9-23); Calcium 9.9 mg/dL (8.7-10.4); Carbon Dioxide 22 mmol/L (20-31); Chloride 106 mmol/L (98-107); Potassium 3.7 mmol/L (3.5-5.1); Sodium 139 mmol/L (136-145); Total Protein 6.8 g/dL (5.7-8.2)
[2024-09-06 16:51] LABS: Aspartate Aminotransferase 11 U/L (13-40); Glucose 257 mg/dL (74-106)
--- NOTE | 2024-09-06 16:53 | ECG ---
[facility] Test Date: 2024-09-06 Test Time: 15:22:51 Pat Name: FABRICE PROCTOR Department: ER Room: 0246T Gender: M Layboy Operator: HUONG : 1955 Requested By: PARMJIT NARAYAN Order Number: [id number] Reading MD: Daryl Andrade Measurements Intervals [place] Rate: 101 P: 58 WI: 145 QRS: -15 QRSD: 90 T: 65 QT: 333 QTc: 432 Interpretive Statements Sinus tachycardia Borderline left axis deviation Electronically Signed On 09-09-2024 15:49:51 PST by Daryl Andrade Please click the below link to view image of tracing.
--- NOTE | 2024-09-06 16:54 | ECG ---
[facility] Test Date: 2024-09-06 Test Time: 16:33:39 Pat Name: FBARICE PROCTOR Department: ED Room: 0246T Gender: M Decorating Inspector: MARIAM : 1955 Requested By: PARMJIT NARAYAN Order Number: [id number] Reading MD: Daryl Andrade Measurements Intervals [place] Rate: 99 P: 55 MD: 143 QRS: -22 QRSD: 86 T: 75 QT: 332 QTc: 426 Interpretive Statements Sinus rhythm Borderline left axis deviation Electronically Signed On 09-09-2024 15:50:17 PST by Daryl Andrade Please click the below link to view image of tracing.
--- NOTE | 2024-09-06 23:48 | DVHHPRES ---
History of Present Illness Resident Creating Document: MERCED LUGO RESDIENT History of Present Illness This is a 69-year-old male with past medical history of coronary artery disease (had PCI in 2021), hyperlipidemia, diabetes mellitus presented to the hospital for chest pain. The pain started 2 months back which was exertional, but since 2 weeks the pain has worsened at became constant. The pain is localized at substernal and epigastric area, has no radiation, pressure-like in nature in 8/10 in intensity. Associated symptoms include exertional shortness of breaths, nausea, palpitation, lightheadedness and dizziness. Two weeks back the patient had upper respiratory tract infection, for which taken azithromycin. Patient denies cough, fever, headache, or any motor and sensory deficits. PMHx: coronary artery disease (had PCI in 2021), hyperlipidemia, diabetes mellitus and BPH PSHx: Right shoulder rotator cuff surgery Family history: Noncontributing Social history: Patient lives with the family at home, current smoker, denies alcohol or any other drug use Home medication: Insulin, pregabalin, atorvastatin, Jardiance, aspirin, Protonix home of Flomax Allergic history: No known allergies PCP: Dr. Art Benjamin Speech Pathology Supervisor: Dr. Landeros Review of Systems Review of Systems General: patient denies fever, fatigue, weaknes, sweating, any recent changes in appetite and weight HEENT: No headaches, visiual changes, hearing loss, tinnitus, nasal congestion and discharge, and sore throat. Cardiovascular: Reports chest pain, exertional shortness of and palpitation Respiratory: No cough, and wheezing. Gastrointestinal: Reports epigastric pain and nausea. Genitourinary: No dysuria, hematuria, discharge, frequency, urgency, nocturia, incontinence, and urinary retention. Endocrine: No heat or cold intolerance, polydipsia, polyuria, and polyphagia. Neurological: Reports dizziness and lightheadedness Psychiatric: Denies depression, anxiety,or insomnia. Musculoskeletal: Denies neck pain, stiffness and swelling, back pain, muscle weakness, joint pain, stiffness, swelling, or limited range of motion. Skin: No rashes, itching, skin lesion, changes in hair, nail, skin texture and breast. Hematologic/Lymphatic: Denies easy bruising, bleeding tendencies, or lymph node enlargement. Allergies: Coded Allergies: NO KNOWN ALLERGIES (Unverified , 01/05/23) Exam Vital Signs Vital Signs Date Time Temp Pulse Resp B/P (MAP) Pulse Ox O2 Delivery O2 Flow Rate FiO2 09/06/24 18:47 80 09/06/24 15:39 98.2 16 152/80 (104) 98 Exam General Appearance: Alert, Oriented X3, Cooperative, No acute distress HEENT: Atraumatic, PERRLA, EOMI, Mucous membrane moist/pink Respiratory: Bilateral lower zone crackles Cardiovascular: Regular rate, Normal S1, Normal S2, No murmurs, no chest wall tenderness Abdominal: Normal bowel sounds, Soft, No tenderness, No hepatospenomegaly, No masses Extremities: No clubbing, No cyanosis, No edema, Normal pulses, No tenderness/swelling Skin: No rashes, No breakdown, No significant lesion Neuro: Normal gait, Normal speech, Strength at 5/5 X4 ext, Normal tone, Sensa tion intact, Cranial nerves 3-12 NL, Reflexes 2+ Psych/Mental Status: Mental status NL, Mood NL Labs/Xrays Labs Test 09/06/24 18:37 09/06/24 15:29 09/06/24 15:26 Range/Units Troponin I High Sensitivity 3 L </=54 ng/L White Blood Count 9.8 4.4-10.8 10^3/uL Red Blood Count 4.81 4.5-5.90 10^6/uL Hemoglobin 15.1 13.5-17.5 g/dL Hematocrit 43.0 41.0-53.0 % Mean Corpuscular Volume 89.5 80.0-100.0 fL Mean Corpuscular Hemoglobin 31.4 28.0-32.0 pg Mean Corpuscular Hemoglobin Concent 35.0 32.0-36.0 g/dL Red Cell Distribution Width 13.1 11.8-14.3 % Platelet Count 269 140-450 10^3/uL Mean Platelet Volume 7.0 6.9-10.8 fL Neutrophils (%) (Auto) 60.1 37.0-80.0 % Lymphocytes (%) (Auto) 28.3 10.0-50.0 % Monocytes (%) (Auto) 9.6 0.0-12.0 % Eosinophils (%) (Auto) 1.2 0.0-7.0 % Basophils (%) (Auto) 0.8 0.0-2.0 % Neutrophils # (Auto) 5.9 1.6-8.6 10 ^3/uL Lymphocytes # (Auto) 2.8 0.4-5.4 10 ^3/uL Monocytes # (Auto) 0.9 0-1.3 10 ^3/uL Eosinophils # (Auto) 0.1 0-0.8 10 ^3/uL Basophils # (Auto) 0.1 0-0.2 10 ^3/uL Nucleated Red Blood Cells 0.1 % D-Dimer, Quantitative 0.24 0.0-0.49 mg/L FEU Urine Color Light-yellow Yellow Urine Clarity Clear Clear Urine pH 5.5 5.0-9.0 Urine Specific [place] 1.039 H 1.001-1.035 Urine Protein Negative Negative Urine Ketones Negative Negative Urine Blood Negative Negative /uL Urine Nitrite Negative Negative Urine Bilirubin Negative Negative Urine Urobilinogen Normal Negative mg/dL Urine Leukocyte Esterase Negative Negative /uL Urine RBC None seen 0 - 3 /hpf Urine WBC <1 0 - 3 /hpf Urine Squamous Epithelial Cells None seen <5 /hpf Urine Bacteria None seen None Seen /hpf Urine Glucose 4+ H Normal mg/dL Sodium Level 139 136-145 mmol/L Potassium Level 3.7 3.5-5.1 mmol/L Chloride Level 106 98-107 mmol/L Carbon Dioxide Level 22 20-31 mmol/L Anion Gap 11 5-15 Blood Urea Nitrogen 16 9-23 mg/dL Creatinine 0.97 0.700-1.30 mg/dL Glomerular Filtration Rate Calc 83 >90 mL/min BUN/Creatinine Ratio 16.5 10.0-20.0 Serum Glucose 257 #H 74-106 mg/dL Calcium Level 9.9 8.7-10.4 mg/dL Total Bilirubin 0.7 0.2-1.0 mg/dL Aspartate Amino Transferase (AST) 11 L 13-40 U/L Alanine Aminotransferase (ALT) 14 7-40 U/L Alkaline Phosphatase 60 46-116 U/L B-Type Natriuretic Peptide 16.15 0-100 pg/mL Total Protein 6.8 5.7-8.2 g/dL Albumin 4.3 3.2-4.8 g/dL POC Glucose 245 H 70-106 mg/dl Assessment/Plan Assessment/Plan Possible unstable angina History of coronary artery disease, status post PCI Dyslipidemia EKG shows normal sinus rhythm, with no acute ST or T-wave changes Serial trop I is within normal limits Consulted cardiology Echocardiogram Aspirin Atorvastatin Uncontrolled diabetes mellitus with hyperglycemia Hb A1c from 09/04/2024 shows 8.0 Insulin mild SS Vitamin-D deficiency, repleted Vitamin B12 deficiency, repleted Current smoker Patient consulted for smoking cessation for more than 18 minutes Nicotine patch BPH, continue Flomax GERD, Protonix DIET: Cardiac diet DVT PROPHYLAXIS: SCDs GI PROPHYLAXIS:: Protonix CODE STATUS: Goal of care discussed for more than 21 minutes, full code DISPOSITION: Telemetry Patient's status discussed with the patient. Case discussed with Dr. Quezada. Plan discussed with: Patient, Other (RN) My Orders Orders - MERCED LUGO Procedure Category Date Status Time Admit ADMIT 09/06/24 Verified 23:47 Nitroglycerin [facility] 09/07/24 Verified Sublingual (Ntrostat 00:00 Morphine Sulfate [facility] 09/07/24 Verified Injection 00:00 Stat Ekg For Chest [facility] 09/06/24 Verified Pain 23:47 Notify Md Of Changes [facility] 09/06/24 Verified From Base 23:47 Tug Captain For [facility] 09/06/24 Verified 24 Hours 23:47 Emergency Dysrhythmia [facility] 09/06/24 Verified Protocol 23:47 Rhythm Strips Once [facility] 09/06/24 Verified Every Shift 23:47 Date of Service: Sep 06, 2024 Billing Provider: JOSE QUEZADA MD Common Visit Codes: [id number] INP/OBS CARE (HIGH) Secondary Visit Codes: [id number] CARE PLAN 30 MINUTES MERCED LUGO RESDIENT Sep 06, 2024 23:48 JOSE QUEZADA MD Sep 07, 2024 08:59
[2024-09-07] VITALS (10 sets, daily range): BP systolic 107–133; BP diastolic 51–96; PULSE 61–102; RESP 18–20; TEMP 97.6–98.7; O2SAT 99–100
[2024-09-07] MEDS ORDERED: MORPHINE SULFATE INJ 2 MG/ml SYRG IV PRN
[2024-09-07] MEDS ORDERED: NITROGLYCERIN 0.4 MG SL TAB SL PRN
[2024-09-07] MEDS: PANTOPRAZOLE 40 MG TAB PO ONE (00:30)
[2024-09-07] MEDS: ATORVASTATIN 20 MG TAB PO ONE (00:30)
[2024-09-07] MEDS: NICOTINE 14 MG/24HR TOPICAL PATCH TD ONE (00:30)
[2024-09-07] MEDS ORDERED: DEXTROSE (50%) 50ML SYRG IV PRN (00:30)
[2024-09-07] MEDS: ASPirin 81 mg TAB PO ONE (01:19)
[2024-09-07] MEDS ORDERED: ACETAMINOPHEN 325 MG TAB PO PRN (01:24)
[2024-09-07 01:56] LABS: Blood Alcohol 5.1 mg/dL (<10)
[2024-09-07 02:21] LABS: Basophils # (auto) 0.1 10 ^3/uL (0-0.2); Eosinophils # (auto) 0.3 10 ^3/uL (0-0.8); Eosinophils % (auto) 2.3 % (0.0-7.0); Hemoglobin 15.7 g/dL (13.5-17.5); Lymphocytes # (auto) 3.4 10 ^3/uL (0.4-5.4); Lymphocytes % (auto) 30.5 % (10.0-50.0); Mean Corpuscular Hgb Conc. 34.2 g/dL (32.0-36.0); Mean Corpuscular Volume 90.7 fL (80.0-100.0); Monocytes % (auto) 9.3 % (0.0-12.0); Neutrophils # (auto) 6.3 10 ^3/uL (1.6-8.6); Neutrophils % (auto) 56.9 % (37.0-80.0); Platelet Count (auto) 287 10^3/uL (140-450); Red Blood Cells 5.08 10^6/uL (4.5-5.90); Red Cell Distribution Width 13.1 % (11.8-14.3); White Blood Cell 11.1 10^3/uL (4.4-10.8)
[2024-09-07 02:40] LABS: Alanine Aminotransferase 16 U/L (7-40); Albumin 4.7 g/dL (3.2-4.8); Alkaline Phosphatase 68 U/L (46-116); Anion Gap 10 (5-15); Bilirubin, Total 0.6 mg/dL (0.2-1.0); Blood Urea Nitrogen 17 mg/dL (9-23); Carbon Dioxide 27 mmol/L (20-31); Chloride 105 mmol/L (98-107); Potassium 3.8 mmol/L (3.5-5.1); Sodium 142 mmol/L (136-145); Total Protein 7.1 g/dL (5.7-8.2)
[2024-09-07 03:26] LABS: Aspartate Aminotransferase 10 U/L (13-40); Calcium 10.5 mg/dL (8.7-10.4); Glucose 201 mg/dL (74-106)
[2024-09-07] MEDS: ACCU-CHEK COMFORT CURVE STRIP VI SCH (03:50)
[2024-09-07] MEDS: InsuLIN REG 1unit/0.01ml Soln (100units/ml) SC SCH (03:50)
[2024-09-07] MEDS: PANTOPRAZOLE 40 MG TAB PO SCH (05:59)
[2024-09-07 06:08] LABS: Alanine Aminotransferase 10 U/L (7-40); Alkaline Phosphatase 57 U/L (46-116); Anion Gap 9 (5-15); BUN/Creatinine Ratio 18.2 (10.0-20.0); Blood Urea Nitrogen 16 mg/dL (9-23); Calcium 10.1 mg/dL (8.7-10.4); Carbon Dioxide 24 mmol/L (20-31); Chloride 107 mmol/L (98-107); Glucose 95 mg/dL (74-106); Sodium 140 mmol/L (136-145)
[2024-09-07 06:10] LABS: Bilirubin, Total 0.6 mg/dL (0.2-1.0); Total Protein 6.7 g/dL (5.7-8.2)
[2024-09-07 06:24] LABS: Aspartate Aminotransferase 9 U/L (13-40); Potassium 3.4 mmol/L (3.5-5.1)
[2024-09-07 06:27] LABS: Albumin 4.6 g/dL (3.2-4.8)
--- NOTE | 2024-09-07 07:18 | ECG ---
[facility] [place]: [place]24-[place]-06 Test Time: 18:47:49 Pat Name: FABRICE PROCTOR Department: ED Room: 0246T Gender: M It Programmer Analyst: MARIAM : 1955 Requested By: PARMJIT NARAYAN Order Number: [id number] Reading MD: Daryl Andrade Measurements Intervals [place] Rate: 80 P: 61 DE: 148 QRS: -3 QRSD: 90 T: 35 QT: 350 QTc: 404 Interpretive Statements Sinus rhythm Abnormal R-wave progression, early transition Baseline wander in lead(s) V6 Electronically Signed On 09-09-2024 15:52:10 PST by Daryl Andrade Please click the below link to view image of tracing.
[2024-09-07] MEDS: NICOTINE 14 MG/24HR TOPICAL PATCH TD SCH (10:00)
[2024-09-07] MEDS: ASPirin 81 mg TAB PO SCH (11:45)
--- NOTE | 2024-09-07 12:43 | DVHINCON2 ---
Date of service: Sep 07, 2024 History of Present Illness HPI Patient is a 69-year-old gentleman who presented with chest tightness and dizziness. Did have some URI symptoms for around 1 week. 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 He is known to our practice from outside than before. Home Meds Active Scripts Lactulose (Lactulose) 10 Gm/15 Ml Itzel, 10 GM PO BIDP PRN, #150 ML Prov:HAN SUMNER PAC 01/05/23 Tamsulosin Hcl (Flomax) 0.4 Mg Cap, 1 CAP PO DAILY, #30 CAP 0 Refills Prov:HAN SUMNER PAC 01/05/23 Hydrocodone-Acetaminophen (Hydrocodone Bitartrate/AC 5-325 mg) 1 Tab Tab, 1 TAB PO Q6HP PRN, #10 TAB Prov:HAN SUMNER PAC 01/05/23 Reported Medications Albuterol Sulfate (Albuterol Sulfate Hfa) 108 Mcg/Act Aer 09/07/24 Glucose Blood (ACCU-CHEK MEGHNA PLUS) Meghna Pl Radha, TID for diabetes mellitus 09/07/24 Cetirizine HCl (Cetirizine Hydrochloride) 10 Mg Tab, 1 TAB PO DAILY 09/07/24 Gabapentin (Gabapentin) 100 Mg Cap, 1 CAP PO BID 09/07/24 Semaglutide (Ozempic) 2 Mg/3 Ml Inj, 0.5 MG SC QWEEKLY 09/07/24 Pregabalin (Pregabalin) 75 Mg Cap, 1 DAILY 09/07/24 Pantoprazole Sodium Sesquihydr (Pantoprazole Sodium) 40 Mg Tab, 1 TAB PO DAILY 09/07/24 Atorvastatin Calcium (ATORVASTATIN CALCIUM) 20 Mg Tab, 1 TAB PO DAILY 09/07/24 Empagliflozin (Jardiance) 25 Mg Tab, 1 DAILY 09/07/24 Famotidine (Famotidine) 40 Mg Tab, 1 DAILY 09/07/24 Folic Acid (Folic Acid) 1 Mg Tab, 1 TAB PO DAILY 09/07/24 Insulin NPH (Human) (Isophane) (Humulin N Kwikpen) 100 Unit/Ml Inj 09/07/24 Past Medical History Others Past medical history includes diabetes mellitus, hyperlipidemia, BPH, fibromyalgia, peripheral artery disease, history of right foot [facility] cuff surgery, erectile dysfunction and coronary artery disease (has had PCI in 2021 in [facility]). Patient Family History: Alcoholism G8 MOTHER G8 FATHER FH: prostate cancer High cholesterol Smoker: No Hx (Negative) Alocohol: None Lives with: With family Review of Systems Constitutional: Malaise Ears, Nose, & Throat: No symptom reported Pulmonary/Respiratory: Cough Cardiovascular: Chest Pain All Other Systems 14 point review of systems performed. Relevant findings as per above and as per HPI. Otherwise negative. H&P Exam Vital Signs Vital Signs Date Time Temp Pulse Resp B/P (MAP) Pulse Ox O2 Delivery O2 Flow Rate FiO2 09/07/24 12:31 98.7 88 19 131/56 (81) 100 98.7 09/07/24 00:30 Room Air* 0 21 General Appeara: Well developed Head Exam: Normal inspection Eye Exam: bilateral eye PERRL Nasal Exam: Normal inspection Mouth: Normal Inspection Pulmonary/Respiratory: Lungs clear Cardiovascular/Chest: Normal inspection, Regular rate Peripheral Pulses: 2+ carotid (R), 2+ carotid (L), 2+ femoral (R), 2+ femoral (L), 2+ dorsalis pedis (R), 2+ dorsalis pedis (L), 2+ Radial (R), 2+ Radial (L) Abdominal Exam: Normal bowel sounds, Soft Neuro/Mental St: Alert, Oriented Appearance: Appropriate appearance Eye contact/ Speech: Cooperative Labs/Xrays Labs Test 09/07/24 12:04 09/07/24 04:40 09/07/24 01:08 09/06/24 18:37 Range/Units POC Glucose 178 H 70-106 mg/dl Sodium Level 140 136-145 mmol/L Potassium Level 3.4 L 3.5-5.1 mmol/L Chloride Level 107 98-107 mmol/L Carbon Dioxide Level 24 20-31 mmol/L Anion Gap 9 5-15 Blood Urea Nitrogen 16 9-23 mg/dL Creatinine 0.88 0.700-1.30 mg/dL Glomerular Filtration Rate Calc 92 >90 mL/min BUN/Creatinine Ratio 18.2 10.0-20.0 Serum Glucose 95 # 74-106 mg/dL Calcium Level 10.1 8.7-10.4 mg/dL Total Bilirubin 0.6 0.2-1.0 mg/dL Aspartate Amino Transferase (AST) 9 L 13-40 U/L Alanine Aminotransferase (ALT) 10 7-40 U/L Alkaline Phosphatase 57 46-116 U/L Total Protein 6.7 5.7-8.2 g/dL Albumin 4.6 3.2-4.8 g/dL White Blood Count 11.1 H 4.4-10.8 10^3/uL Red Blood Count 5.08 4.5-5.90 10^6/uL Hemoglobin 15.7 13.5-17.5 g/dL Hematocrit 46.0 41.0-53.0 % Mean Corpuscular Volume 90.7 80.0-100.0 fL Mean Corpuscular Hemoglobin 31.0 28.0-32.0 pg Mean Corpuscular Hemoglobin Concent 34.2 32.0-36.0 g/dL Red Cell Distribution Width 13.1 11.8-14.3 % Platelet Count 287 140-450 10^3/uL Mean Platelet Volume 6.9 6.9-10.8 fL Neutrophils (%) (Auto) 56.9 37.0-80.0 % Lymphocytes (%) (Auto) 30.5 10.0-50.0 % Monocytes (%) (Auto) 9.3 0.0-12.0 % Eosinophils (%) (Auto) 2.3 0.0-7.0 % Basophils (%) (Auto) 1.0 0.0-2.0 % Neutrophils # (Auto) 6.3 1.6-8.6 10 ^3/uL Lymphocytes # (Auto) 3.4 0.4-5.4 10 ^3/uL Monocytes # (Auto) 1.0 0-1.3 10 ^3/uL Eosinophils # (Auto) 0.3 0-0.8 10 ^3/uL Basophils # (Auto) 0.1 0-0.2 10 ^3/uL Nucleated Red Blood Cells 0.0 % Triglycerides Level 394 H < 150 mg/dL Cholesterol Level 196 < 200 mg/dL LDL Cholesterol 114 H < 100 mg/dL HDL Cholesterol 39 L 40-59 mg/dL Thyroid Stimulating Hormone (TSH) 1.73 0.55-4.78 uIU/mL Plasma/Serum Blood Alcohol 5.1 <10 mg/dL Troponin I High Sensitivity 3 L </=54 ng/L Test 09/06/24 15:29 Range/Units D-Dimer, Quantitative 0.24 0.0-0.49 mg/L FEU Urine Color Light-yellow Yellow Urine Clarity Clear Clear Urine pH 5.5 5.0-9.0 Urine Specific [place] 1.039 H 1.001-1.035 Urine Protein Negative Negative Urine Ketones Negative Negative Urine Blood Negative Negative /uL Urine Nitrite Negative Negative Urine Bilirubin Negative Negative Urine Urobilinogen Normal Negative mg/dL Urine Leukocyte Esterase Negative Negative /uL Urine RBC None seen 0 - 3 /hpf Urine WBC <1 0 - 3 /hpf Urine Squamous Epithelial Cells None seen <5 /hpf Urine Bacteria None seen None Seen /hpf Urine Glucose 4+ H Normal mg/dL B-Type Natriuretic Peptide 16.15 0-100 pg/mL Assessment/Plan Plan Patient is a 69-year-old gentleman who presented with chest tightness and dizziness. Did have some URI symptoms for around 1 week. 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 He is known to our practice from outside than before. Not in acute distress. No JVD. Mucous eyes pink and wet. Not using accessory muscles of breathing. Cardiac: Regular, no serial/gallops. Abdomen is soft. Bowel sounds positive dorsalis pedis is 2+ bilateral. There is no peripheral edema. Past medical history includes diabetes mellitus, hyperlipidemia, BPH, fibromyalgia, peripheral artery disease, history of right foot [facility] cuff surgery, erectile dysfunction and coronary artery disease (has had PCI in 2021 in [facility]). D-dimer: 0.24 (within normal limit) Alcohol level: 5.1 Troponin (high sensitive): 3 - 4 - 3 BNP: 16.15 EKG reveals sinus rhythm Tele reveals sinus rhythm Patient is a 69-year-old gentleman who presented with atypical chest pain. Serial high sensitivity troponin has been negative. EKGs been nonrevealing. We will request for echocardiogram for further risk stratification. Atypical chest pain URI Dizziness Diabetes mellitus Hyperlipidemia History of coronary artery disease Cardiac suggestion for management: Follow up on telemetry Follow up electrolytes and kidney function testing correct abnormalities. Keep potassium above 4 magnesium of 2 Echocardiogram for further risk stratification Aspirin/Plavix Further evaluation and management depends on the above and clinical course Thank you for consultation A total of 55 minutes was spent reviewing the patient record, examining the patient, making a diagnostic and therapeutic plan, discussing this plan with medical personnel, following up on diagnostic studies and following the patient for clinical stability excluding any and all procedures. At least 50% of this time was spent in direct, [id number] contact. Thank you for allowing me to participate in this patient's care. Further recommendations will depend on patient's clinical course. Please do not hesitate to contact me if you have any questions or concerns. This medical document was created using electronic medical record system with [employer] computerized dictation system. Although this document has been carefully reviewed, there may still be some phonetic and typographical errors. These areas are purely typographical due to the imperfection of the software programs, and do not reflect any compromise in the patient's medical care. Plan discussed with: Patient, Other (-nurse) HAN BORJA MD Sep 07, 2024 12:43
--- NOTE | 2024-09-07 12:45 | DVHPN2 ---
Reviewed: Care Plan, H&P, Labs, Medications, Previous Orders Changes from previous H/P or p: No Changes General: Per HPI Objective Vitals Vital Signs Date Time Temp Pulse Resp B/P (MAP) Pulse Ox O2 Delivery O2 Flow Rate FiO2 09/07/24 12:31 98.7 88 19 131/56 (81) 100 98.7 09/07/24 00:30 Room Air* 0 21 Medications Current Medications Medications Dose Ordered Sig/Eileen Route Start Time Stop Time Status Last Admin Dose Admin Nitroglycerin 0.4 mg Q5MINP PRN SL 09/07/24 00:00 Morphine Sulfate 2 mg Q30M PRN IV 09/07/24 00:00 Aspirin 81 mg DAILY PO 09/07/24 10:00 09/07/24 11:45 81 MG Atorvastatin Calcium 20 mg HS PO 09/07/24 22:00 Pantoprazole Sodium 40 mg DAILY@0600 PO 09/07/24 06:00 09/07/24 05:59 40 MG Nicotine 1 patch DAILY TD 09/07/24 10:00 Diagnostic Test (Pha) 1 strip IQ4HR 09/07/24 04:00 09/07/24 12:06 1 STRIP Insulin Human Regular IQ4HR SC 09/07/24 04:00 09/07/24 12:38 3 UNITS Dextrose 50 ml UD PRN IV 09/07/24 00:30 Acetaminophen 650 mg Q6HP PRN PO 09/07/24 01:24 Tamsulosin HCl 0.4 mg QPM PO 09/07/24 18:00 Laboratory Results Laboratory Tests 09/07/24 01:08 09/07/24 04:40 Chemistry Test 09/06/24 15:29 09/07/24 01:08 09/07/24 04:40 Albumin 4.3 g/dL (3.2-4.8) 4.7 g/dL (3.2-4.8) 4.6 g/dL (3.2-4.8) Calcium Level 9.9 mg/dL (8.7-10.4) 10.5 mg/dL (8.7-10.4) H 10.1 mg/dL (8.7-10.4) Total Protein 6.8 g/dL (5.7-8.2) 7.1 g/dL (5.7-8.2) 6.7 g/dL (5.7-8.2) Coagulation Test 09/06/24 15:29 D-Dimer, Quantitative 0.24 mg/L FEU (0.0-0.49) Lipid panel Test 09/07/24 01:08 Cholesterol Level 196 mg/dL (< 200) HDL Cholesterol 39 mg/dL (40-59) L Triglycerides Level 394 mg/dL (< 150) H Cardiac Markers Test 09/06/24 15:29 B-Type Natriuretic Peptide 16.15 pg/mL (0-100) LFT Test 09/06/24 15:29 09/07/24 01:08 09/07/24 04:40 Alanine Aminotransferase (ALT) 14 U/L (7-40) 16 U/L (7-40) 10 U/L (7-40) Alkaline Phosphatase 60 U/L (46-116) 68 U/L (46-116) 57 U/L (46-116) Aspartate Amino Transferase (AST) 11 U/L (13-40) L 10 U/L (13-40) L 9 U/L (13-40) L Total Bilirubin 0.7 mg/dL (0.2-1.0) 0.6 mg/dL (0.2-1.0) 0.6 mg/dL (0.2-1.0) HgA1c, TSH Test 09/07/24 01:08 Thyroid Stimulating Hormone (TSH) 1.73 uIU/mL (0.55-4.78) Urinalysis Test 09/06/24 15:29 Urine Color Light-yellow (Yellow) Urine Clarity Clear (Clear) Urine pH 5.5 (5.0-9.0) Urine Specific [place] 1.039 (1.001-1.035) Urine Protein Negative (Negative) Urine Ketones Negative (Negative) Urine Blood Negative /uL (Negative) Urine Nitrite Negative (Negative) Urine Bilirubin Negative (Negative) Urine Urobilinogen Normal mg/dL (Negative) Urine Leukocyte Esterase Negative /uL (Negative) Urine RBC None seen /hpf (0 - 3) Urine WBC <1 /hpf (0 - 3) Urine Squamous Epithelial Cells None seen /hpf (<5) Urine Bacteria None seen /hpf (None Seen) Urine Glucose 4+ mg/dL (Normal) H Assessment/Plan Assessment/Plan This is a 69-year-old male with past medical history of coronary artery disease (had PCI in 2021), hyperlipidemia, diabetes mellitus presented to the hospital for chest pain. The pain started 2 months back which was exertional, but since 2 weeks the pain has worsened at became constant. The pain is localized at substernal and epigastric area, has no radiation, pressure-like in nature in 8/10 in intensity. Associated symptoms include exertional shortness of breaths, nausea, palpitation, lightheadedness and dizziness. Two weeks back the patient had upper respiratory tract infection, for which taken azithromycin. Patient denies cough, fever, headache, or any motor and sensory deficits. Possible unstable angina History of coronary artery disease, status post PCI Dyslipidemia Uncontrolled diabetes mellitus with hyperglycemia Hb A1c from 09/04/2024 shows 8.0 Insulin mild SS Vitamin-D deficiency, repleted Vitamin B12 deficiency, repleted Current smoker 09/07/2024: pending full evaluation by cardiology. Chest pain improved Plan discussed with: Patient Date of Service: Sep 07, 2024 Billing Provider: JOSE HERNANDEZ DO Common Visit Codes: [id number] INP/OBS CARE(HIGH) JOSE HERNANDEZ DO Sep 07, 2024 12:45
[2024-09-07] MEDS ORDERED: PREG75CA90 (14:00)
[2024-09-07] MEDS ORDERED: GAB100C PO (14:00)
[2024-09-07] MEDS ORDERED: SEMA2INJ3 SC (14:00)
[2024-09-07] MEDS ORDERED: CETI-120 PO (14:00)
[2024-09-07] MEDS ORDERED: FAMO40TA7 (14:00)
[2024-09-07] MEDS ORDERED: ALBU108A5 (14:00)
[2024-09-07] MEDS ORDERED: EMPA1TAB3 (14:00)
[2024-09-07] MEDS ORDERED: ATOR20TA50 PO (14:00)
[2024-09-07] MEDS ORDERED: GLUC-105 (14:00)
[2024-09-07] MEDS ORDERED: PANT40T PO (14:00)
[2024-09-07] MEDS ORDERED: FOLI-119 PO (14:00)
[2024-09-07] MEDS ORDERED: INSU1INJ4 (14:00)
[2024-09-07] MEDS: CLOPIDOGREL BISULFATE 75 MG TAB PO ONE (14:52)
[2024-09-07] MEDS: TAMSULOSIN HYDROCHLORIDE 0.4 MG CAP PO SCH (18:10)
[2024-09-07] MEDS: ATORVASTATIN 20 MG TAB PO SCH (21:56)
[2024-09-08] VITALS (7 sets, daily range): BP systolic 107–149; BP diastolic 58–97; PULSE 66–99; RESP 18–20; TEMP 97.6–98.7; O2SAT 98–100
[2024-09-08] MEDS: CLOPIDOGREL BISULFATE 75 MG TAB PO SCH (11:25)
--- NOTE | 2024-09-08 12:52 | DVHSR ---
APPROVED REPORT EXAM: Two-dimensional and M-mode echocardiogram with Doppler and color Doppler. Blood Pressure: 125/78 mmHg INDICATION pre- syncope RISK FACTORS Height: 5'7, Weight: 168 DIMENSIONS LVDd4.3 (3.8-5.7cm)LA (2D)2.6 (1.9-4.0cm)Aortic Root2.9 (2.0-3.7cm) LVDs2.9 (2.5-4.0cm)LA (MM) (1.9-4.0cm)Aortic Cusp Exc1.6 (1.5-2.0cm) EF (%) 60.0 (55-70%)Rt. Atrium3.4 (1.9-4.0cm)Asc. Aorta2.9 cm IVSd0.9 (0.7-1.1cm)RV (D)3.8 (1.8-2.4cm) PWd0.9 (0.7-1.1cm) Mitral Valve MitralMitral Stenosis E wave0.72m/sMV Mean GR.mmHg A wave0.95m/sMV Peak GR.mmHg E/A ratio0.82D MVAcm2 DECEL [id number] 1/2 [place] Aortic Valve Aortic ValveAortic Stenosis V10.90m/[place] Mean GR.2mmHg V21.05m/[place] Peak GR.4mmHg LVOT Diameter2.4 (1.8-2.4cm)Doppler AVA3.88cm2 AI P 1/2 [id number] Pulmonic Valve V21.02m/s Tricuspid Valve TR Velocity2.45m/s [id number] Conclusion Left ventricle: Left ventricle was normal size with normal systolic function. The LVEF was around 6 0-65%. There was no wall motion abnormality. Diastolic function of left ventricle was considered no rmal for age Right ventricle: Right ventricle was normal size with normal systolic function. Both atria were norm al size. Aortic valve was not well visualized. There was no aortic stenosis. There was mild aortic insuffici ency. There was trivial mitral regurgitation. There was trace tricuspid regurgitation. Pulmonary v alve was not well visualized. Right ventricular systolic pressure was assessed at 27 mm Hg (normal). There was no pericardial effu romario.
--- NOTE | 2024-09-08 13:11 | DVHPN2 ---
Progress Note - Dictate Date Seen: Sep 08, 2024 Medical Necessity Reason Pt with a Central, PICC or Fol: No vital signs Vital Sign Date Time Temp Pulse Resp B/P (MAP) Pulse Ox O2 Delivery O2 Flow Rate FiO2 09/08/24 09:00 97.9 79 18 107/58 (74) 100 97.9 09/08/24 08:00 Room Air* 0 21 Total Intake and Output 09/07/24 09/07/24 09/08/24 15:00 23:00 07:00 Intake Total 350 ml 500 ml Balance 350 ml 500 ml medications Current Medications Medications Dose Ordered Sig/Eielen Route Start Time Stop Time Status Last Admin Dose Admin Nitroglycerin 0.4 mg Q5MINP PRN SL 09/07/24 00:00 Morphine Sulfate 2 mg Q30M PRN IV 09/07/24 00:00 Aspirin 81 mg DAILY PO 09/07/24 10:00 09/08/24 11:24 81 MG Atorvastatin Calcium 20 mg HS PO 09/07/24 22:00 09/07/24 21:56 20 MG Pantoprazole Sodium 40 mg DAILY@0600 PO 09/07/24 06:00 09/08/24 05:45 40 MG Nicotine 1 patch DAILY TD 09/07/24 10:00 Diagnostic Test (Pha) 1 strip IQ4HR 09/07/24 04:00 09/08/24 12:00 1 STRIP Insulin Human Regular IQ4HR SC 09/07/24 04:00 09/08/24 12:49 2 UNITS Dextrose 50 ml UD PRN IV 09/07/24 00:30 Acetaminophen 650 mg Q6HP PRN PO 09/07/24 01:24 Tamsulosin HCl 0.4 mg QPM PO 09/07/24 18:00 09/07/24 18:10 0.4 MG Clopidogrel Bisulfate 75 mg DAILY PO 09/08/24 10:00 09/08/24 11:25 75 MG laboratory and microbiology Laboratory Tests 09/07/24 04:40 09/07/24 01:08 Test 09/07/24 04:40 Range/Units Serum Glucose 95 # 74-106 mg/dL Assessment/Plan Patient is a 69-year-old gentleman who presented with chest tightness and dizziness. Did have some URI symptoms for around 1 week. 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 He is known to our practice from outside than before. Not in acute distress. No JVD. Mucous eyes pink and wet. Not using accessory muscles of breathing. Cardiac: Regular, no serial/gallops. Abdomen is soft. Bowel sounds positive dorsalis pedis is 2+ bilateral. There is no peripheral edema. Past medical history includes diabetes mellitus, hyperlipidemia, BPH, fibromyalgia, peripheral artery disease, history of right foot long-term cuff surgery, erectile dysfunction and coronary artery disease (has had PCI in 2021 in [facility]). D-dimer: 0.24 (within normal limit) Alcohol level: 5.1 Troponin (high sensitive): 3 - 4 - 3 BNP: 16.15 chest xry revealed: IMPRESSION: No acute disease. EKG reveals sinus rhythm Tele reveals sinus rhythm Echocardiogram revealed: Left ventricle: Left ventricle was normal size with normal systolic function. The LVEF was around 60-65%. There was no wall motion abnormality. Diastolic function of left ventricle was considered normal for age Right ventricle: Right ventricle was normal size with normal systolic function. Both atria were normal size. Aortic valve was not well visualized. There was no aortic stenosis. There was mild aortic insufficiency. There was trivial mitral regurgitation. There was trace tricuspid regurgitation. Pulmonary valve was not well visualized. Right ventricular systolic pressure was assessed at 27 mm Hg (normal). There was no pericardial effusion. Patient is a 69-year-old gentleman who presented with atypical chest pain. Serial high sensitivity troponin has been negative. EKGs been nonrevealing. We will request for echocardiogram for further risk stratification. Atypical chest pain URI Dizziness Diabetes mellitus Hyperlipidemia History of coronary artery disease Cardiac suggestion for management: Follow up on telemetry Follow up electrolytes and kidney function testing correct abnormalities. Keep potassium above 4 magnesium of 2 We will consider stress test as outpatient Aspirin/Plavix Cardiac moreno, stable Further evaluation and management depends on the above and clinical course A total of 55 minutes was spent reviewing the patient record, examining the patient, making a diagnostic and therapeutic plan, discussing this plan with medical personnel, following up on diagnostic studies and following the patient for clinical stability excluding any and all procedures. At least 50% of this time was spent in direct, [id number] contact. Thank you for allowing me to participate in this patient's care. Further recommendations will depend on patient's clinical course. Please do not hesitate to contact me if you have any questions or concerns. This medical document was created using electronic medical record system with [employer] computerized dictation system. Although this document has been carefully reviewed, there may still be some phonetic and typographical errors. These areas are purely typographical due to the imperfection of the software programs, and do not reflect any compromise in the patient's medical care. Plan discussed with: Patient, Other (nurse) HAN BORJA MD Sep 08, 2024 13:11
[2024-09-08] MEDS ORDERED: ASPI-325 PO (17:55)
[2024-09-08] MEDS ORDERED: ATOR20TA50 PO (17:55)
[2024-09-08] MEDS ORDERED: CLOP75TA70 PO (17:55)
[2024-09-08] MEDS ORDERED: TAMS-35 PO (17:55)
--- NOTE | 2024-09-08 18:01 | DVHDS2 ---
Discharge Summary Date of Admission Sep 06, 2024 at 23:47 Date of Discharge: Sep 08, 2024 Labs/Diagnostic Data: Laboratory Results Test 09/08/24 12:42 09/07/24 04:40 09/07/24 01:08 09/06/24 18:37 POC Glucose 149 mg/dl (70-106) Sodium Level 140 mmol/L (136-145) Potassium Level 3.4 mmol/L (3.5-5.1) Chloride Level 107 mmol/L (98-107) Carbon Dioxide Level 24 mmol/L (20-31) Anion Gap 9 (5-15) Blood Urea Nitrogen 16 mg/dL (9-23) Creatinine 0.88 mg/dL (0.700-1.30) Glomerular Filtration Rate Calc 92 mL/min (>90) BUN/Creatinine Ratio 18.2 (10.0-20.0) Serum Glucose 95 mg/dL (74-106) Calcium Level 10.1 mg/dL (8.7-10.4) Total Bilirubin 0.6 mg/dL (0.2-1.0) Aspartate Amino Transferase (AST) 9 U/L (13-40) Alanine Aminotransferase (ALT) 10 U/L (7-40) Alkaline Phosphatase 57 U/L (46-116) Total Protein 6.7 g/dL (5.7-8.2) Albumin 4.6 g/dL (3.2-4.8) White Blood Count 11.1 10^3/uL (4.4-10.8) Red Blood Count 5.08 10^6/uL (4.5-5.90) Hemoglobin 15.7 g/dL (13.5-17.5) Hematocrit 46.0 % (41.0-53.0) Mean Corpuscular Volume 90.7 fL (80.0-100.0) Mean Corpuscular Hemoglobin 31.0 pg (28.0-32.0) Mean Corpuscular Hemoglobin Concent 34.2 g/dL (32.0-36.0) Red Cell Distribution Width 13.1 % (11.8-14.3) Platelet Count 287 10^3/uL (140-450) Mean Platelet Volume 6.9 fL (6.9-10.8) Neutrophils (%) (Auto) 56.9 % (37.0-80.0) Lymphocytes (%) (Auto) 30.5 % (10.0-50.0) Monocytes (%) (Auto) 9.3 % (0.0-12.0) Eosinophils (%) (Auto) 2.3 % (0.0-7.0) Basophils (%) (Auto) 1.0 % (0.0-2.0) Neutrophils # (Auto) 6.3 10 ^3/uL (1.6-8.6) Lymphocytes # (Auto) 3.4 10 ^3/uL (0.4-5.4) Monocytes # (Auto) 1.0 10 ^3/uL (0-1.3) Eosinophils # (Auto) 0.3 10 ^3/uL (0-0.8) Basophils # (Auto) 0.1 10 ^3/uL (0-0.2) Nucleated Red Blood Cells 0.0 % Triglycerides Level 394 mg/dL (< 150) Cholesterol Level 196 mg/dL (< 200) LDL Cholesterol 114 mg/dL (< 100) HDL Cholesterol 39 mg/dL (40-59) Thyroid Stimulating Hormone (TSH) 1.73 uIU/mL (0.55-4.78) Plasma/Serum Blood Alcohol 5.1 mg/dL (<10) Troponin I High Sensitivity 3 ng/L (</=54) Test 09/06/24 15:29 D-Dimer, Quantitative 0.24 mg/L FEU (0.0-0.49) Urine Color Light-yellow (Yellow) Urine Clarity Clear (Clear) Urine pH 5.5 (5.0-9.0) Urine Specific [place] 1.039 (1.001-1.035) Urine Protein Negative (Negative) Urine Ketones Negative (Negative) Urine Blood Negative /uL (Negative) Urine Nitrite Negative (Negative) Urine Bilirubin Negative (Negative) Urine Urobilinogen Normal mg/dL (Negative) Urine Leukocyte Esterase Negative /uL (Negative) Urine RBC None seen /hpf (0 - 3) Urine WBC <1 /hpf (0 - 3) Urine Squamous Epithelial Cells None seen /hpf (<5) Urine Bacteria None seen /hpf (None Seen) Urine Glucose 4+ mg/dL (Normal) B-Type Natriuretic Peptide 16.15 pg/mL (0-100) Other Laboratory Tests 09/07/24 04:40 09/07/24 01:08 Brief Hx & Hospital Course: This is a 69-year-old male with past medical history of coronary artery disease (had PCI in 2021), hyperlipidemia, diabetes mellitus presented to the hospital for chest pain. The pain started 2 months back which was exertional, but since 2 weeks the pain has worsened at became constant. The pain is localized at substernal and epigastric area, has no radiation, pressure-like in nature in 8/10 in intensity. Associated symptoms include exertional shortness of breaths, nausea, palpitation, lightheadedness and dizziness. Two weeks back the patient had upper respiratory tract infection, for which taken azithromycin. Patient denies cough, fever, headache, or any motor and sensory deficits. Possible unstable angina History of coronary artery disease, status post PCI Dyslipidemia Uncontrolled diabetes mellitus with hyperglycemia Hb A1c from 09/04/2024 shows 8.0 Insulin mild SS Vitamin-D deficiency, repleted Vitamin B12 deficiency, repleted Current smoker 09/07/2024: pending full evaluation by cardiology. Chest pain improved Plan discussed with: Patient 09/08/2024: cleared by cardiology for discharge. discharged to home with new meds. sent to local pharmacy to delivery Condition at Discharge: Good Final Diagnosis/Problems List see above Discharge Disposition: Home Discharge Instruct/Medications Diet: Cardiac 2g Na,low cholest Activity: No Restrictions, As Tolerated Discharge Statement: "Patient was advised to return to the ER or call 911 if any headaches, dizziness, shortness of breath, chest pain, abdominal pain, bleeding, fevers, or worsening of medical condition. Patient was counseled about treatment plan, medications, possible side effects, patientverbalized understanding. All questions were answered to the best of my ability. This discharge took greater then 30 minutes in planning, reviewing documentation, counseling the patient, and discussing with other team members." ASSESSMENT ASSESSMENT Assessment Date of Service: Sep 08, 2024 Billing Provider: JOSE HERNANDEZ DO Common Visit Codes: [id number] DISCH DAY >30min JOSE HERNANDEZ DO Sep 08, 2024 18:01
== END 2024-09-08 18:50 | disposition home or self-care (01) | DRG 311 ==
LOC: ER 15:17 → TELE 23:47 → TELE-EAST 09-07 07:54
PROVIDERS: ADMIT Internal Medicine; ATTEND Internal Medicine
DX: I20.0 Unstable angina (principal); E78.5 Hyperlipidemia, unspecified; I10 Essential (primary) hypertension; N40.0 Benign prostatic hyperplasia without lower urinary tract symptoms; F17.200 Nicotine dependence, unspecified, uncomplicated; E11.65 Type 2 diabetes mellitus with hyperglycemia; E55.9 Vitamin D deficiency, unspecified; E53.8 Deficiency of other specified B group vitamins; K21.9 Gastro-esophageal reflux disease without esophagitis; M79.7 Fibromyalgia; E11.51 Type 2 diabetes mellitus with diabetic peripheral angiopathy without gangrene; Z79.82 Long term (current) use of aspirin; Z98.61 Coronary angioplasty status; Z79.84 Long term (current) use of oral hypoglycemic drugs; Z79.899 Other long term (current) drug therapy; Z85.46 Personal history of malignant neoplasm of prostate; Z80.42 Family history of malignant neoplasm of prostate; Z83.42 Family history of familial hypercholesterolemia
CPT/HCPCS: 36415; 71045; 80053; 80061; 80320; 81001; 82962; 83880; 84443; 84484; 85025; 85379; 93005; 93306; G0378; J1815

== ENCOUNTER → 2024-12-17 | Outpatient (CLI) | payer MEDICAID ==
[~2024-12-17] MED LIST changes: +ALBU108A5; +ASPI-325 PO; +ATOR20TA50 PO; +CETI-120 PO; +CLOP75TA70 PO; +EMPA1TAB3; +FAMO40TA7; +FOLI-119 PO; +GAB100C PO; +GLUC-105; -IBUP-1455 PO; +INSU1INJ4; -NITR-87 PO; +PANT40T PO; +PREG75CA90; +SEMA2INJ3 SC
[2024-12-17 12:19] LABS: Urine Bacteria None Seen /hpf (None Seen)
[2024-12-17 12:33] LABS: Basophils # (auto) 0.1 10 ^3/uL (0-0.2); Basophils % (auto) 0.9 % (0.0-2.0); Eosinophils # (auto) 0.2 10 ^3/uL (0-0.8); Eosinophils % (auto) 1.8 % (0.0-7.0); Hematocrit 45.2 % (41.0-53.0); Hemoglobin 15.4 g/dL (13.5-17.5); Lymphocytes # (auto) 2.7 10 ^3/uL (0.4-5.4); Lymphocytes % (auto) 30.5 % (10.0-50.0); Mean Corpuscular Hemoglobin 30.7 pg (28.0-32.0); Mean Corpuscular Volume 90.5 fL (80.0-100.0); Monocytes # (auto) 0.9 10 ^3/uL (0-1.3); Monocytes % (auto) 10.4 % (0.0-12.0); Neutrophils % (auto) 56.4 % (37.0-80.0); Nucleated Red Blood Cells % 0.3 %; Platelet Count (auto) 246 10^3/uL (140-450); Red Blood Cells 4.99 10^6/uL (4.5-5.90); Red Cell Distribution Width 13.1 % (11.8-14.3); White Blood Cell 8.8 10^3/uL (4.4-10.8)
[2024-12-17 12:34] LABS: Urine Blood Negative /uL (Negative); Urine Clarity Clear (Clear); Urine Color Light-Yellow (Yellow); Urine Protein, UAD Negative (Negative); Urine Specific Gravity 1.023 (1.001-1.035); Urine Squamous Epithelial Cell FEW /hpf (<5); Urine Urobilinogen Normal (Negative); Urine WBC < 1 /HPF (0-3); Urine pH 6.5 (5.0-9.0)
[2024-12-17 13:28] LABS: Prostate Specific Antigen 0.38 ng/mL (0.0-4.0)
[2024-12-17 13:31] LABS: Alanine Aminotransferase 11 U/L (7-40); Albumin 4.7 g/dL (3.2-4.8); Alkaline Phosphatase 64 U/L (46-116); Anion Gap 9 (5-15); BUN/Creatinine Ratio 17.6 (10.0-20.0); Blood Urea Nitrogen 15 mg/dL (9-23); Carbon Dioxide 27 mmol/L (20-31); Chloride 104 mmol/L (98-107); Cholesterol 172 mg/dL (< 200); Glucose 74 mg/dL (74-106); HDL Cholesterol 47 mg/dL (40-59); Potassium 4.1 mmol/L (3.5-5.1); Sodium 140 mmol/L (136-145); Total Protein 7.2 g/dL (5.7-8.2); Triglycerides 104 mg/dL (< 150)
[2024-12-17 13:32] LABS: Aspartate Aminotransferase 11 U/L (13-40); Bilirubin, Total 1.3 mg/dL (0.2-1.0); LDL Cholesterol 110 mg/dL (< 100)
[2024-12-17 13:45] LABS: Uric Acid 4.7 mg/dL (3.7-9.2)
[2024-12-17 13:49] LABS: Folate (Folic Acid) 31.01 ng/mL (>5.38)
== END | disposition home or self-care (01) ==
LOC: LAB 12:02
PROVIDERS: ATTEND Internal Medicine
DX: E61.2 Magnesium deficiency (principal); D51.9 Vitamin B12 deficiency anemia, unspecified; E79.0 Hyperuricemia without signs of inflammatory arthritis and tophaceous disease; E78.49 Other hyperlipidemia; R73.09 Other abnormal glucose; R68.89 Other general symptoms and signs; R94.6 Abnormal results of thyroid function studies; R82.998 Other abnormal findings in urine; R82.90 Unspecified abnormal findings in urine; R82.79 Other abnormal findings on microbiological examination of urine
CPT/HCPCS: 36415; 80053; 80061; 81001; 82306; 82607; 82746; 83036; 84153; 84443; 84550; 85025; 87086

== ENCOUNTER 2025-01-08 09:10 | Outpatient (CLI) | payer MEDICAID ==
[~2025-01-08] VITALS: Ht 170.2 cm; Wt 77.1 kg
[2025-01-08] MEDS: REGADENOSON 0.4 MG/5 ML SYRG IV ONE ×2 (11:47→11:52)
--- NOTE | 2025-01-09 12:03 | DVHSR ---
APPROVED REPORT Exam: Nuclear Stress Test Indication: CAD Stress Tech: Delma Slaguhter Ht: 5 ft 7 in Wt: 170 lbs BSA: 1.89 m2 HR: 95 bpm BP: 132/58 mmHg BMI: 26.62 Medical History Medical History: CAD, HTN, EF 60-65%, DM, Smoker Allergies: No known drug allergies Stress Test Details Stress Test: Pharmacologic stress testing performed using 0.4 mg of regadenoson per 5 mL given IV ov er 10 seconds. Reason for pharmacologic stress test: CAD. HR Resting HR: 95 bpmMax Heart Rate (APMHR): 149.671593 bpm Max HR Achieved: 95 bpmTarget HR (85% APMHR): 126.485367 bpm % of APMHR: 63.76 Recovery HR: 88 bpm BP Resting BP: 132/58 mmHg Recovery BP: 125/59 mmHg ECG Resting ECG: NSR Clinical Reason for Termination: Completed protocol Stress ECG Conclusion lvef 60% inferior wall reversible ischemia study abnormal study y NM EXAM: Myocardial Perfusion REST/STRESS Imaging Protocol: Rest Tc-99m/Stress Tc-99m 1 day Resting Data Rest SPECT myocardial perfusion imaging was performed in supine position 45 minutes following the int ravenous injection of 13.2 mCi of Tc-99m Sestamibi. Time of rest injection: 0930 Time of rest imagin Administration Route: IV Administration Site: Right Hand Pharmacologic Stress Pharmacologic stress test was performed by injecting Regadenoson 0.4 mg IV push followed by the intra venous injection of 33.6 mCi of Tc-99m Sestamibi. Time of stress injection: 1045 Time of stress imagin Administration Route: IV Administration Site: Right Hand Gated Stress SPECT was performed 75 minutes after stress injection. The images were gated to evaluate regional wall motion and calculate left ventricular ejection fracti on. Nuclear Conclusion lvef 60% inferior wall reversible ischemia study abnormal study y
== END 2025-01-08 17:00 | disposition home or self-care (01) ==
LOC: XYW 09:10
PROVIDERS: ATTEND Specialist
DX: I25.10 Atherosclerotic heart disease of native coronary artery without angina pectoris (principal); I10 Essential (primary) hypertension; E11.9 Type 2 diabetes mellitus without complications; R00.2 Palpitations; Z87.891 Personal history of nicotine dependence
CPT/HCPCS: 78452; 93017; A9500; J2785